=== PATIENT | female | born 1960 | race Caucasian/White ===

== ENCOUNTER 2016-10-02 09:18 | Emergency (ER) | payer OTHER ==
[2016-10-02 09:50] VITALS: BP 143/82
--- NOTE | 2016-10-02 10:26 | UC ---
Knee Pain HPI - HPI Summary HPI Summary: Pain has Left knee pain. 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 - History of Current Complaint Chief Complaint: UCLowerExtremity Stated Complaint: LEFT KNEE PAIN Time Seen by Provider: 10/02/16 10:14 Hx Obtained From: Patient Hx Last Menstrual Period: 10yrs ?: No Onset/Duration: Gradual Onset, Lasting Days - 5, Still Present, Worse Since - getting worse daily Severity Initially: Mild Severity Currently: Moderate Pain Intensity: 6 Pain Scale Used: 0-10 Numeric Character: Aching, Throbbing Aggravating Factor(s): Movement, Weight Bearing, Prolonged Standing, Stairs Alleviating Factor(s): Nothing - as been taking Ibuprofen 600 mg q4-6 hours for pain Associated Signs And Symptoms: Positive: Negative Able to Bear Weight: Yes - Allergies/Home Medications Allergies/Adverse Reactions: Allergies Allergy/AdvReac Type Severity Reaction Status Date / Time kiwi Allergy Swelling Uncoded 10/02/16 09:44 Of Face,Lips,& Throat PMH/Surg Hx/FS Hx/Imm Hx Previously Healthy: No Endocrine History Of: Reports: Thyroid Disease - hypothyroid Cardiovascular History Of: Reports: Cardiac Disorders - A-fib, Hypertension, Atrial Fibrillation - Surgical History Surgical History: Yes Surgery Procedure, Year, and Place: THYROID - RADIATED, GASTRIC BYPASS, gallbladder, uterine ablation - Family History Known Family History: Positive: Cardiac Disease, Hypertension, Diabetes - Social History 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 Lives: With Family Alcohol Use: Occasionally Alcohol Amount: 2 Substance Use Type: None Smoking Status (MU): Never Smoked Tobacco Have You Smoked in the Last Year: No - Immunization History Most Recent Influenza Vaccination: Fall 2015 Review of Systems Constitutional: Negative Skin: Negative Eyes: Negative ENT: Negative Respiratory: Negative Cardiovascular: Negative Gastrointestinal: Negative Genitourinary: Negative Motor: Negative Neurovascular: Negative Musculoskeletal: Arthralgia - crepetus with range of motion Neurological: Negative Psychological: Negative All Other Systems Reviewed And Are Negative: Yes Physical Exam Triage Information Reviewed: Yes Appearance: Well-Appearing, No Pain Distress, Well-Nourished Vital Signs: Initial Vital Signs Temp 99.5 F 10/02/16 09:45 Pulse 69 10/02/16 09:45 Resp 20 10/02/16 09:45 BP 143/82 10/02/16 09:45 Pulse Ox 98 10/02/16 09:45 Vital Signs Reviewed: Yes Eye Exam: Normal Eyes: Positive: Conjunctiva Clear ENT Exam: Normal ENT: Positive: Normal ENT inspection, Hearing grossly normal, Pharynx normal. Negative: Nasal congestion, Nasal drainage, Trismus, Muffled/hoarse voice Neck exam: Normal Neck: Positive: Supple, Nontender Respiratory Exam: Normal Respiratory: Positive: Chest non-tender, Lungs clear, Normal breath sounds, No respiratory distress, No accessory muscle use Cardiovascular Exam: Normal Cardiovascular: Positive: RRR, No Murmur, Pulses Normal, Brisk Capillary Refill Musculoskeletal Exam: Normal Musculoskeletal: Positive: Strength Intact, ROM Intact, No Edema Neurological Exam: Normal Neurological: Positive: Alert, Muscle Tone Normal Psychological Exam: Normal Skin Exam: Normal Skin: Positive: rashes Diagnostics - Radiology No standard instances Xray Interpretation: No Acute Changes Radiology Interpretation Completed By: Radiologist Knee Pain Course/Dx - Course Course Of Treatment: physical therapy, d/c ibuprofen change to naproxen, follow with orthopedic - Differential Dx/Diagnosis Differential Diagnosis/HQI/PQRI: Contusion, Fracture (Closed), Internal Derangement Of Knee, Sprain, Strain, Other - knee pain Provider Diagnoses: Left knee pain Discharge - Discharge Plan Condition: Stable Disposition: HOME Prescriptions: Naproxen Sodium 500 mg PO BID #20 tab Patient Education Materials: Knee Pain (ED), Knee Exercises (GEN) Forms: *Work Release Referrals: Sonido Bates MD [Medical Doctor] - No Primary Care Phys,NOPCP [Primary Care Provider] -
--- NOTE | 2016-10-02 11:15 | RAD ---
Indication: LEFT knee pain for 5 days without preceding injury. Comparison: None. Technique: AP, tunnel, lateral, sunrise views LEFT knee. Report: Normal articular alignment and preserved joint spaces. Negative for joint effusion, fracture, or focal osseous lesion. Unremarkable soft tissue contours. IMPRESSION: Negative exam.
== END 2016-10-02 11:41 | disposition home or self-care (01) ==
LOC: UCCORT 09:18
DX: M25.562 Pain in left knee (principal)
CPT/HCPCS: 99212; G0463

== ENCOUNTER 2016-10-08 12:55 | Emergency (ER) | payer OTHER ==
[2016-10-08 13:49] VITALS: BP 136/79
--- NOTE | 2016-10-08 15:14 | UC ---
Throat Pain/Nasal Kali HPI - HPI Summary HPI Summary: ST, fever, chills for 2d. Now with dry cough, malaise, headache, body aches. Mild nasal congestion. 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 Nonsmoker. No asthma. - History of Current Complaint Chief Complaint: UCGeneralIllness Stated Complaint: SORE THROAT,COUGH Time Seen by Provider: 10/08/16 15:05 Hx Obtained From: Patient, Family/Supervisor Cab - Hx Last Menstrual Period: 10yrs Onset/Duration: Gradual Onset, Lasting Days - 2 Severity: Moderate Cough: Nonproductive Associated Signs & Symptoms: Positive: Dysphagia, Hoarseness, Nasal Discharge, Fever - subjective - Epiglottits Risk Factors Epiglottis Risk Factors: Negative - Allergies/Home Medications Allergies/Adverse Reactions: Allergies Allergy/AdvReac Type Severity Reaction Status Date / Time kiwi Allergy Swelling Uncoded 10/02/16 09:44 Of Face,Lips,& Throat PMH/Surg Hx/FS Hx/Imm Hx Endocrine History Of: Reports: Thyroid Disease - hypothyroid Cardiovascular History Of: Reports: Cardiac Disorders - A-fib, Hypertension, Atrial Fibrillation - Surgical History Surgical History: Yes Surgery Procedure, Year, and Place: THYROID - RADIATED, GASTRIC BYPASS, gallbladder, uterine ablation - Family History Known Family History: Positive: Cardiac Disease, Hypertension, Diabetes - Social History Occupation: Employed Full-time Lives: With Family Alcohol Use: Occasionally Alcohol Amount: 2 Substance Use Type: None Smoking Status (MU): Never Smoked Tobacco Have You Smoked in the Last Year: No - Immunization History Most Recent Influenza Vaccination: Fall 2015 Review of Systems Constitutional: Fever, Chills, Fatigue Skin: Negative Eyes: Negative ENT: Sore Throat, Nasal Discharge Respiratory: Cough Cardiovascular: Negative Gastrointestinal: Negative Genitourinary: Negative Motor: Negative Neurovascular: Negative Musculoskeletal: Negative Neurological: Negative Psychological: Negative All Other Systems Reviewed And Are Negative: Yes Physical Exam Triage Information Reviewed: Yes Appearance: Well-Appearing, No Pain Distress, Well-Nourished Vital Signs: Initial Vital Signs Temp 99.2 F 10/08/16 13:44 Pulse 72 10/08/16 13:44 Resp 16 10/08/16 13:44 BP 136/79 10/08/16 13:44 Pulse Ox 98 10/08/16 13:44 Vital Signs Reviewed: Yes Eye Exam: Normal ENT: Positive: Hearing grossly normal, Pharyngeal erythema, TMs normal, Muffled/ hoarse voice - hoarse. Negative: Tonsillar swelling, Tonsillar exudate, Trismus Neck exam: Normal Respiratory Exam: Normal Respiratory: Positive: Lungs clear, Normal breath sounds, No respiratory distress, No accessory muscle use Cardiovascular Exam: Normal Musculoskeletal Exam: Normal Neurological Exam: Normal Psychological Exam: Normal Skin Exam: Normal Diagnostics - Laboratory Diagnostic Studies Completed/Ordered: Strep neg Throat Pain/Nasal Course/Dx - Differential Dx/Diagnosis Differential Diagnosis/HQI/PQRI: Influenza, Sinusitis, URI Provider Diagnoses: URI Discharge - Discharge Plan Condition: Stable Disposition: HOME Prescriptions: Guaifenesin-Codeine [Cheratussin AC] 1 - 2 teasp PO Q6HR PRN #120 ml MDD 30ml PRN Reason: Cough Meloxicam [Mobic] 7.5 mg PO BID PRN #20 tab PRN Reason: Pain Patient Education Materials: Upper Respiratory Infection (ED) Forms: *Work Release Referrals: No Primary Care Phys,NOPCP [Primary Care Provider] -
== END 2016-10-08 15:45 | disposition home or self-care (01) ==
LOC: UCCORT 12:55
DX: J06.9 Acute upper respiratory infection, unspecified (principal)
CPT/HCPCS: 87651; 99212; G0463

== ENCOUNTER 2016-10-27 14:53 | Emergency (ER) | payer OTHER ==
[2016-10-27 15:49] VITALS: BP 147/100
--- NOTE | 2016-10-27 16:07 | UC ---
Respiratory Complaint HPI - HPI Summary HPI Summary: s/p flu 2 weeks, developed cough and SOB since, no fever or sinus congestion - History of Current Complaint Chief Complaint: UCEar Stated Complaint: THROAT,EARS,COUGH Time Seen by Provider: 10/27/16 15:53 Hx Last Menstrual Period: 10yrs - Allergies/Home Medications Allergies/Adverse Reactions: Allergies Allergy/AdvReac Type Severity Reaction Status Date / Time kiwi Allergy Swelling Uncoded 10/02/16 09:44 Of Face,Lips,& Throat PMH/Surg Hx/FS Hx/Imm Hx Previously Healthy: Yes Endocrine History Of: Reports: Thyroid Disease - hypothyroid Cardiovascular History Of: Reports: Cardiac Disorders - A-fib, Hypertension, Atrial Fibrillation - Surgical History Surgical History: Yes Surgery Procedure, Year, and Place: THYROID - RADIATED, GASTRIC BYPASS, gallbladder, uterine ablation - Family History Known Family History: Positive: Cardiac Disease, Hypertension, Diabetes - Social History Alcohol Use: Occasionally Alcohol Amount: 2 Substance Use Type: None Smoking Status (MU): Never Smoked Tobacco Have You Smoked in the Last Year: No - Immunization History Most Recent Influenza Vaccination: Fall 2015 Review of Systems Constitutional: Negative Skin: Negative Eyes: Negative ENT: Negative Respiratory: Shortness Of Breath, Cough Cardiovascular: Negative Gastrointestinal: Negative Genitourinary: Negative Motor: Negative Neurovascular: Negative Musculoskeletal: Negative Neurological: Negative Psychological: Negative All Other Systems Reviewed And Are Negative: Yes Physical Exam Triage Information Reviewed: Yes Appearance: Well-Nourished, Ill-Appearing, Pain Distress Vital Signs: Initial Vital Signs Temp 100.4 F 10/27/16 15:44 Pulse 80 10/27/16 15:44 Resp 16 10/27/16 15:44 BP 147/100 10/27/16 15:44 Pulse Ox 99 10/27/16 15:44 Vital Signs Reviewed: Yes Eye Exam: Normal Eyes: Positive: Conjunctiva Clear ENT Exam: Normal ENT: Positive: Normal ENT inspection, Hearing grossly normal, Pharyngeal erythema, TMs normal Dental Exam: Normal Neck exam: Normal Neck: Positive: Supple, Nontender, No Lymphadenopathy Respiratory Exam: Normal Respiratory: Positive: Chest non-tender, No respiratory distress, No accessory muscle use, Wheezing, Inspiration Cardiovascular Exam: Normal Cardiovascular: Positive: RRR, No Murmur, Pulses Normal Abdominal Exam: Normal Abdomen Description: Positive: Nontender, No Organomegaly, Soft Bowel Sounds: Positive: Present Musculoskeletal Exam: Normal Musculoskeletal: Positive: Strength Intact, ROM Intact, No Edema Neurological Exam: Normal Neurological: Positive: Alert, Muscle Tone Normal Psychological Exam: Normal Skin Exam: Normal UC Diagnostic Evaluation - Laboratory O2 Sat by Pulse Oximetry: 99 Respiratory Course/Dx - Course Course Of Treatment: hx obtained,exam performed, meds prescribed. eduacted on How to monitor BP and recommend follow up with PCP - Differential Dx/Diagnosis Differential Diagnosis/HQI/PQRI: Asthma, Bronchitis, Influenza, Laryngitis, VRE , Sinusitis Provider Diagnoses: bronchitis Discharge - Discharge Plan Condition: Stable Disposition: HOME Patient Education Materials: Acute Bronchitis (ED) Forms: *Work Release Additional Instructions: take the medications as prescribed. Increase fluid intake and get plenty of rest.
== END 2016-10-27 16:15 | disposition home or self-care (01) ==
LOC: UCCORT 14:53
DX: J40 Bronchitis, not specified as acute or chronic (principal); Z90.49 Acquired absence of other specified parts of digestive tract; Z98.84 Bariatric surgery status
CPT/HCPCS: 99212; G0463

== ENCOUNTER 2017-01-11 17:31 | Emergency (ER) | payer OTHER ==
[2017-01-11 17:41] VITALS: BP 146/80
[2017-01-11] MEDS ORDERED: Sulfamethox/Trimethoprim DS 800/160* TAB PO ONE (18:06)
[2017-01-11] MEDS ORDERED: Benzonatate CAP* 100 MG PO ONE (18:07)
--- NOTE | 2017-01-11 18:35 | UC ---
Throat Pain/Nasal Kali HPI - HPI Summary HPI Summary: pt presents with c/o nasal congestion, sore throat, cough, and lower abdominal pain. The nasal congestion and cough X 2-3 weeks. The lower abdominal discomfort began 1 day ago. Reports that she noticed that when she urinated it "bui and does not feel like I am emptying my bladder". - History of Current Complaint Chief Complaint: UCGeneralIllness Stated Complaint: SORE THROAT/URINARY Time Seen by Provider: 01/11/17 17:41 Hx Obtained From: Patient Hx Last Menstrual Period: 10yrs ?: No Onset/Duration: Gradual Onset, Lasting Days Severity: Mild Pain Intensity: 0 Pain Scale Used: 0-10 Numeric Related History: Seasonal Allergies - Allergies/Home Medications Allergies/Adverse Reactions: Allergies Allergy/AdvReac Type Severity Reaction Status Date / Time kiwi Allergy Swelling Uncoded 01/11/17 17:41 Of Face,Lips,& Throat PMH/Surg Hx/FS Hx/Imm Hx Previously Healthy: Yes Endocrine History Of: Reports: Thyroid Disease - hypothyroid Cardiovascular History Of: Reports: Cardiac Disorders - A-fib, Hypertension, Atrial Fibrillation - Surgical History Surgical History: Yes Surgery Procedure, Year, and Place: THYROID - RADIATED, GASTRIC BYPASS, gallbladder, uterine ablation - Family History Known Family History: Positive: Cardiac Disease, Hypertension, Diabetes - Social History Alcohol Use: Occasionally Alcohol Amount: 2 Substance Use Type: None Smoking Status (MU): Never Smoked Tobacco Have You Smoked in the Last Year: No - Immunization History Most Recent Influenza Vaccination: Fall 2015 Review of Systems Constitutional: Chills, Fatigue Skin: Negative Eyes: Negative ENT: Other - nasal congestion Respiratory: Cough Cardiovascular: Negative Gastrointestinal: Negative Genitourinary: Negative Motor: Negative Neurovascular: Negative Musculoskeletal: Myalgia Neurological: Negative Psychological: Negative All Other Systems Reviewed And Are Negative: Yes Physical Exam Triage Information Reviewed: Yes Appearance: Well-Appearing Vital Signs: Initial Vital Signs Temp 99.4 F 01/11/17 17:37 Pulse 70 01/11/17 17:37 Resp 18 01/11/17 17:37 BP 146/80 01/11/17 17:37 Pulse Ox 99 01/11/17 17:37 Vital Signs Reviewed: Yes Eye Exam: Normal ENT Exam: Other ENT: Positive: Nasal congestion Dental Exam: Normal Respiratory Exam: Normal Cardiovascular Exam: Normal Musculoskeletal Exam: Normal Neurological Exam: Normal Psychological Exam: Normal Skin Exam: Normal Throat Pain/Nasal Course/Dx - Differential Dx/Diagnosis Differential Diagnosis/HQI/PQRI: Influenza, Tonsillitis, URI Provider Diagnoses: UTI. Allergic rhinitis. Bronchitis Discharge - Discharge Plan Condition: Stable Disposition: HOME Prescriptions: Benzonatate CAP* [Tessalon 100 MG CAP*] 100 mg PO TID PRN #15 cap PRN Reason: Cough Fluticasone NASAL * [Flonase *] 2 spray BOTH NARES DAILY #1 bottle Sulfamethox/Trimethoprim DS* [Bactrim DS 800/160 TAB*] 1 tab PO Q12H #10 tab Patient Education Materials: Urinary Tract Infection in Women (ED), Upper Respiratory Infection (ED) Referrals: [facility]FERR[facility] [Outside] No Primary Care Phys,NOPCP [Primary Care Provider] -
== END 2017-01-11 18:16 | disposition home or self-care (01) ==
LOC: UCCORT 17:31
DX: J30.9 Allergic rhinitis, unspecified (principal); J40 Bronchitis, not specified as acute or chronic; N39.0 Urinary tract infection, site not specified; I10 Essential (primary) hypertension; I48.91 Unspecified atrial fibrillation; E03.9 Hypothyroidism, unspecified
CPT/HCPCS: 81003; 87077; 87086; 87186; 99212; A9270-GY; G0463

== ENCOUNTER 2017-02-28 07:27 | Emergency (ER) | payer OTHER ==
[2017-02-28 08:26] VITALS: BP 154/93
--- NOTE | 2017-02-28 11:28 | UC ---
Complaint Female HPI - HPI Summary HPI Summary: Right abdominal pain 2 eves ago, improved then relapsed yesterday when pt had urinary frequency. Blood in urine today [ End ] - History Of Current Complaint Chief Complaint: UCGU Stated Complaint: URINARY Time Seen by Provider: 02/28/17 08:48 Hx Obtained From: Patient Hx Last Menstrual Period: n/a Onset/Duration: Gradual Onset Pain Intensity: 2 Pain Scale Used: 0-10 Numeric Associated Signs And Symptoms: Positive: Negative, Back Pain - Allergies/Home Medications Allergies/Adverse Reactions: Allergies Allergy/AdvReac Type Severity Reaction Status Date / Time allergies Allergy Congestion Uncoded 02/28/17 08:27 kiwi Allergy Swelling Uncoded 02/28/17 08:27 Of Face,Lips,& Throat PMH/Surg Hx/FS Hx/Imm Hx Previously Healthy: Yes - Surgical History Surgical History: Yes Surgery Procedure, Year, and Place: THYROID - RADIATED, GASTRIC BYPASS, gallbladder, uterine ablation - Family History Known Family History: Positive: Cardiac Disease, Hypertension, Diabetes - Social History Occupation: Employed Full-time Lives: With Family Alcohol Use: Occasionally Alcohol Amount: 2 Substance Use Type: None Smoking Status (MU): Never Smoked Tobacco Have You Smoked in the Last Year: No - Immunization History Most Recent Influenza Vaccination: Fall 2015 Review of Systems Constitutional: Negative Skin: Negative Eyes: Negative ENT: Negative Respiratory: Negative Cardiovascular: Negative Gastrointestinal: Negative Genitourinary: Dysuria, Hematuria, Frequency Motor: Negative Neurovascular: Negative Musculoskeletal: Negative Neurological: Negative Psychological: Negative All Other Systems Reviewed And Are Negative: Yes Physical Exam Triage Information Reviewed: Yes Appearance: Well-Appearing, No Pain Distress, Well-Nourished Vital Signs: Initial Vital Signs Temp 99 F 02/28/17 08:19 Pulse 71 02/28/17 08:19 Resp 18 02/28/17 08:19 BP 154/93 02/28/17 08:19 Eye Exam: Normal ENT Exam: Normal Dental Exam: Normal Neck exam: Normal Neck: Positive: 1 Respiratory Exam: Normal Cardiovascular Exam: Normal Abdominal Exam: Normal Musculoskeletal Exam: Normal Neurological Exam: Normal Psychological Exam: Normal Skin Exam: Normal Complaint Female Dx - Differential Dx/Diagnosis Provider Diagnoses: UTI Discharge - Discharge Plan Condition: Good Disposition: HOME Prescriptions: Sulfamethox/Trimethoprim DS* [Bactrim DS 800/160 TAB*] 1 tab PO BID #10 tab Patient Education Materials: Urinary Tract Infection in Women (ED) Referrals: No Primary Care Phys,NOPCP [Primary Care Provider] - 2 Weeks (for recheck urine )
== END 2017-02-28 09:19 | disposition home or self-care (01) ==
LOC: UCCORT 07:27
DX: N39.0 Urinary tract infection, site not specified (principal)
CPT/HCPCS: 81003; 87086; 99212; G0463

== ENCOUNTER 2017-04-21 10:08 | Emergency (ER) | payer OTHER ==
[2017-04-21 10:27] VITALS: BP 127/78
--- NOTE | 2017-04-21 10:42 | UC ---
Complaint Female HPI - HPI Summary HPI Summary: fever chills x 1 day + urinary frequency no cough , no nasal congestion , sore throat, no rash or joint pain - History Of Current Complaint Chief Complaint: UCGeneralIllness Stated Complaint: FEVER,HEADACHE Time Seen by Provider: 04/21/17 10:30 Hx Obtained From: Patient Hx Last Menstrual Period: n/a Onset/Duration: Gradual Onset, Lasting Days - 1, Still Present Timing: Constant Severity Initially: Moderate Severity Currently: Moderate Associated Signs And Symptoms: Positive: Fever, Back Pain. Negative: Vaginal Bleeding/Discharge, Vaginal Discharge, Nausea, Vomiting(# Of Episodes =), Genital Swelling, Genital Blisters, Retained Foregin Body (Specify) - Allergies/Home Medications Allergies/Adverse Reactions: Allergies Allergy/AdvReac Type Severity Reaction Status Date / Time allergies Allergy Congestion Uncoded 04/21/17 10:27 kiwi Allergy Swelling Uncoded 04/21/17 10:27 Of Face,Lips,& Throat PMH/Surg Hx/FS Hx/Imm Hx Previously Healthy: Yes Endocrine History: Hypothyroidism Cardiovascular History: Hypertension, Atrial Fibrillation - Surgical History Surgical History: Yes Surgery Procedure, Year, and Place: THYROID - RADIATED, GASTRIC BYPASS 2002, gallbladder, uterine ablation - Family History Known Family History: Positive: Cardiac Disease, Hypertension, Diabetes - Social History Alcohol Use: Rare Alcohol Amount: 2 Substance Use Type: None Smoking Status (MU): Never Smoked Tobacco Have You Smoked in the Last Year: No - Immunization History Most Recent Influenza Vaccination: Fall 2015 Review of Systems Constitutional: Fever, Chills, Fatigue Skin: Negative Eyes: Negative ENT: Negative Respiratory: Negative Genitourinary: Dysuria, Frequency All Other Systems Reviewed And Are Negative: Yes Physical Exam Triage Information Reviewed: Yes Appearance: Well-Appearing, No Pain Distress, Well-Nourished Vital Signs: Initial Vital Signs Temp 98.2 F 04/21/17 10:22 Pulse 72 04/21/17 10:22 Resp 14 04/21/17 10:22 BP 127/78 04/21/17 10:22 Pulse Ox 99 04/21/17 10:22 Vital Signs Reviewed: Yes Eyes: Positive: Conjunctiva Clear ENT: Positive: Normal ENT inspection, Hearing grossly normal, Pharynx normal Neck exam: Normal Neck: Positive: Supple, Nontender, No Lymphadenopathy Respiratory: Positive: Chest non-tender, Lungs clear, Normal breath sounds Cardiovascular: Positive: RRR, No Murmur, Pulses Normal Abdominal Exam: Normal Abdomen Description: Positive: Nontender, Soft. Negative: CVA Tenderness (R), CVA Tenderness (L), Distended, Guarding Bowel Sounds: Positive: Present Skin Exam: Normal Complaint Female Dx - Differential Dx/Diagnosis Provider Diagnoses: UTI Discharge - Discharge Plan Condition: Stable Disposition: HOME Patient Education Materials: Dysuria (ED) Referrals: No Primary Care Phys,NOPCP [Primary Care Provider] - 7 Days Additional Instructions: WILL SEND THE URINE FOR CULTURE PLEASE CALL THE OFFICE IN 2 DAYS FOR THE RESULTS NO NEED FOR ABX FOR NOW UNTIL WE HAVE THE CULTURE RESULTS
== END 2017-04-21 10:48 | disposition home or self-care (01) ==
LOC: UCCORT 10:08
DX: N39.0 Urinary tract infection, site not specified (principal); E03.9 Hypothyroidism, unspecified; I10 Essential (primary) hypertension; I48.91 Unspecified atrial fibrillation; Z98.84 Bariatric surgery status; Z90.49 Acquired absence of other specified parts of digestive tract
CPT/HCPCS: 81003; 87086; 99211; G0463

== ENCOUNTER 2017-07-27 14:43 | Observation (INO) | payer OTHER ==
[2017-07-27] MEDS ORDERED: NS 0.9% 1000 ML* 1,000 ML IV ONE (14:49)
[2017-07-27] MEDS ORDERED: Aspirin Low Dose CHEW TAB* 81 MG PO ONE (14:49)
--- NOTE | 2017-07-27 15:21 | RAD ---
Indication: Sudden onset chest pressure with bilateral upper chimney heaviness and shortness of breath. Reported low blood pressure. Diaphoretic. Comparison: No relevant prior exams available on the [facility] [place] [facility] PACS for comparison. Technique: Upright AP 1455 hours Report: Obese body habitus. Clear lungs and pleural spaces. Negative for pneumothorax. The heart, pulmonary vasculature, and mediastinal contours are unremarkable. Unremarkable osseous structures and soft tissue contours. IMPRESSION: No evidence for acute intrathoracic disease.
[2017-07-27 15:38] LABS: Hematocrit 36 % (35-47); Hemoglobin 11.2 g/dl (12.0-16.0); Mean Corpuscular HGB Conc 31 g/dl (31-36); Mean Corpuscular Hemoglobin 25 pg (27-31); Mean Corpuscular Volume 80 fL (80-97); Mean Platelet Volume 8 um3 (7.4-10.4); Red Cell Distribution Width 17 % (10.5-15); White Blood Count 9.8 10^3/ul (3.5-10.8)
[2017-07-27 16:00] LABS: Troponin I 0.07 ng/mL (<0.04)
[2017-07-27] MEDS ORDERED: Metoprolol Tartrate TAB* 25 MG PO ONE (16:00)
[2017-07-27 16:05] LABS: Albumin 3.5 g/dL (3.2-5.2); BUN/Creatinine Ratio 18.4 (8-20); Calcium 8.4 mg/dL (8.6-10.3); EGFR African American 70.5 (>60); EGFR Non-African American 54.8 (>60); Globulin 2.9 g/dL (2-4); Magnesium 1.7 mg/dL (1.9-2.7); Potassium 3.1 mmol/L (3.5-5.0); Total Bilirubin 0.2 mg/dL (0.2-1.0); Total Protein 6.4 g/dL (6.4-8.9)
[2017-07-27] MEDS ORDERED: Potassium Chlor TAB* 20 MEQ TAB.ER PO ONE (16:15)
--- NOTE | 2017-07-27 16:17 | ED ---
Lisbeth Acevedo Nilda, scribed for Arturo Arvizu MD on 07/27/17 at 1517 . HPI Chest Pain - HPI Summary HPI Summary: This patient is a 57 year old F BIBA to [facility] with a chief complaint of constant CP (heaviness) that radiates to bilat UE since 1230 today (about two hours ago). The patient rates the pain 6/10 in severity. Symptoms aggravated and alleviated by nothing. Per EMS, patient received [facility] PROGRAM COORDINATOR. Patient reports SOB, diaphoresis, and cough (past 3 weeks), but denies nausea. - History of Current Complaint Chief Complaint: EDChestPainROMI Time Seen by Provider: 07/27/17 14:49 Hx Obtained From: Patient Hx Last Menstrual Period: n/a Onset/Duration: Started Hours Ago, Still Present Timing: Constant Current Severity: Moderate Pain Intensity: 6 Pain Scale Used: 0-10 Numeric Chest Pain Radiates: Yes Chest Pain Radiates To:: Arm - bilat Character: Heaviness Aggravating Factor(s): Nothing Alleviating Factor(s): Nothing Associated Signs and Symptoms: Positive: Other: - SOB, diaphoresis, and cough ( past 3 weeks), but denies nausea. - Allergy/Home Medications Allergies/Adverse Reactions: Allergies Allergy/AdvReac Type Severity Reaction Status Date / Time allergies Allergy Congestion Uncoded 04/21/17 10:27 kiwi Allergy Swelling Uncoded 04/21/17 10:27 Of Face,Lips,& Throat PMH/Surg Hx/FS Hx/Imm Hx Endocrine/Hematology History: Reports: Hx Thyroid Disease - hypothyroid Cardiovascular History: Reports: Hx Hypertension EENT History: Denies: Hx Deafness - Surgical History Surgery Procedure, Year, and Place: THYROID - RADIATED, GASTRIC BYPASS 2002, gallbladder, uterine ablation - Immunization History Date of Influenza Vaccine: NO Infectious Disease History: No Infectious Disease History: Denies: Hx Clostridium Difficile, Hx Hepatitis, Hx Human Immunodeficiency Virus (HIV), Hx of Known/Suspected MRSA, Hx Shingles, Hx Tuberculosis, Hx Known/ Suspected VRE, Hx Known/Suspected VRSA, History Other Infectious Disease, Traveled Outside the [place] in Last 30 Days - Family History Known Family History: Positive: Cardiac Disease, Hypertension, Diabetes - Social History Alcohol Use: Rare Alcohol Amount: 2 Substance Use Type: Reports: None Smoking Status (MU): Never Smoked Tobacco Have You Smoked in the Last Year: No Review of Systems Positive: Skin Diaphoresis Positive: Chest Pain Positive: Shortness Of Breath, Cough Negative: Nausea Positive: Other - bilat arm pain All Other Systems Reviewed And Are Negative: Yes Physical Exam Triage Information Reviewed: Yes Vital Signs On Initial Exam: Initial Vitals Temp Pulse Resp BP Pulse Ox 98.8 F 176 18 115/76 96 07/27/17 14:48 07/27/17 14:48 07/27/17 14:48 07/27/17 14:48 07/27/17 14:48 Vital Signs Reviewed: Yes Appearance: Positive: Ill-Appearing - sob Skin: Positive: Skin Color Reflects Adequate Perfusion Head/Face: Positive: Normal Head/Face Inspection Eyes: Positive: EOMI ENT: Positive: Normal ENT inspection Neck: Positive: Supple, Nontender Respiratory/Lung Sounds: Positive: Clear to Auscultation, Breath Sounds Present Cardiovascular: Positive: Tachycardia - and irregular Abdomen Description: Positive: Nontender Musculoskeletal: Positive: Strength/ROM Intact Neurological: Positive: Sensory/Motor Intact, Alert, Oriented to Person Place, Time, CN Intact II-III Psychiatric: Positive: Normal - Varsha Coma Scale Best Eye Response: 4 - Spontaneous Best Motor Response: 6 - Obeys Commands Best Verbal Response: 5 - Oriented Coma Scale Total: 15 Diagnostics - Vital Signs Vital Signs Temp Pulse Resp BP Pulse Ox 07/27/17 14:48 98.8 F 176 18 115/76 96 - Laboratory Result Diagrams: 07/27/17 15:27 07/27/17 15:27 Lab Statement: Any lab studies that have been ordered have been reviewed, and results considered in the medical decision making process. - Radiology CXR Xray Interpretation: No Acute Changes Radiology Interpretation Completed By: Radiologist - CXR reveals no evidence for acute intrathoracic disease. ED physician has reviewed this radiology report and agrees. - EKG 1533 Cardiac Rate: NL EKG Rhythm: Sinus Rhythm - 85 bpm EKG Interpretation: No STEMI Re-Evaluation - Re-Evaluation First Eval Re-Evaluation Time: 15:39 Change: Improved Comment: she is symptom free and in NSR. Chest Pain Course/Dx - Course Course Of Treatment: This patient is a 57 year old F [facility]IBA to [facility] with a chief complaint of constant CP (heaviness) that radiates to bilat UE since 1230 today (about two hours ago). The patient rates the pain 6/10 in severity. Symptoms aggravated and alleviated by nothing. Per EMS, patient received [facility] PROGRAM COORDINATOR. Patient reports SOB, diaphoresis, and cough (past 3 weeks), but denies nausea. She presented in Afib with RVR and spontaneous resolved. EKG reveals NSR, 85 bpm, no STEMI. CXR reveals no evidence for acute intrathoracic disease. ED physician has reviewed this radiology report and agrees. Dx: Atrial fibrillation with RVR and Chest Pain. - Diagnoses Provider Diagnoses: Atrial fibrillation with RVR, Chest pain, Hypokalemia - Critical Care Time Critical Care Time: 30-74 min Discharge - Discharge Plan Condition: Good Disposition: ADMITTED TO [facility] Referrals: No Primary Care Phys,NOPCP [Primary Care Provider] - The documentation as recorded by the Lisbeth dow Nilda accurately reflects the service I personally performed and the decisions made by me, Arturo Arvizu MD.
[2017-07-27] MEDS ORDERED: Magnesium Sulfate 2 GM IV* 2 GM/50 ML BAG IVPB ONE (16:24)
[2017-07-27] MEDS ORDERED: Acetaminophen TAB* 325 MG PO PRN (16:44)
[2017-07-27] MEDS ORDERED: Temazepam CAP* 15 MG PO PRN (16:44)
[2017-07-27 16:55] LABS: TSH (Thyroid Stimulating Horm) 3.93 mcIU/mL (0.34-5.60)
[2017-07-27 16:59] LABS: Free T4 0.99 ng/dL (0.61-1.12)
[2017-07-27] MEDS: KCL 20 MEQ/100 ML IVPREMIX* 20 MEQ/100 ML BAG IV SCH ×2 (18:00→22:00)
--- NOTE | 2017-07-27 21:40 | HP ---
CC: Aisha Washington MD * HISTORY AND PHYSICAL: DATE OF ADMISSION: 07/27/17 PRIMARY CARE PROVIDER: Aisha Washington MD CHIEF COMPLAINT: Shortness of breath and arm heaviness. HISTORY OF PRESENT ILLNESS: Sherman Atwood is a 57-year-old female with history of Graves disease, status post radioactive iodine treatment as well as episodes of atrial fibrillation in 2004 when she had Graves disease that resolved after she became hypothyroid. She stated that for the past week, she has been having problems with upper respiratory symptoms with cough and chest congestion. She was placed on azithromycin and prednisone taper. 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 She stated that she had been feeling some slight abdominal discomfort and maybe fullness. That had been going on for the past day and a half. Today when she went to lunch, she developed extreme sensation of heaviness in bilateral arms and shortness of breath. She called her and then called 911. She was noted to be in atrial fibrillation with rapid ventricular response with the heart rate into 170s. By the time she was evaluated by the ED physician, that rhythm broke spontaneously and she converted to sinus rhythm without pharmacologic treatment. Her symptoms of shortness of breath and heaviness in bilateral arms resolved with cessation of the abnormal rhythm. Her troponin was 0.07. She is going to be placed on overnight observation with a stress test in the morning. PAST MEDICAL HISTORY: 1. History of Graves disease, status post radioactive iodine treatment, now hypothyroid. 2. Hypothyroidism. 3. History of gastric bypass surgery. 4. History of uterine ablation. 5. History of cholecystectomy. 6. History of diverticulitis bouts several times in the past. 7. History of frequent UTIs. 8. History of episode of atrial fibrillation in 2004. 9. Hyperthyroid. MEDICATIONS: Include Synthroid 125 mcg daily. ALLERGIES: No known drug allergies. FAMILY HISTORY: Positive for both parents dying of heart disease, father in the 70s and mother in her 80s. SOCIAL HISTORY: The patient denies any tobacco, alcohol, or drug use. 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 Her is her surrogate, his name is Jonathan Atwood, phone number is [phone]. REVIEW OF SYSTEMS: Please see history of present illness. In addition to the above mentioned, the patient denies any chest pain. She did not have the sensation of arm heaviness and shortness of breath before and today it lasted approximately an hour up until it resolved in the emergency department. She still has scant cough, but she feels much better with her cold. All the remaining 12 systems were reviewed with the patient, and were otherwise negative. PHYSICAL EXAMINATION GENERAL: The patient is a very pleasant 57-year-old female, who is in no acute distress, alert, awake, and oriented x3. VITAL SIGNS: Blood pressure of 107/74, heart rate of 77 and regular, respiratory rate 15, oxygen saturation 97% on room air, temperature of 98.8. HEENT: Head: Atraumatic, normocephalic. Eyes: Pupils are equal, reactive to light and accommodation. Oropharynx clear. Mucosa moist. NECK: Supple. No JVD. No bruits bilaterally. RESPIRATORY: Scant crackles at left lower lobe, otherwise clear. CARDIOVASCULAR: Regular rate and rhythm. No murmur. ABDOMEN: Soft and nontender. Bowel sounds are present in all 4 quadrants. EXTREMITIES: There is no edema. Pulses +2 bilaterally. There is no clubbing or cyanosis. NEUROLOGIC: Speech is clear. Cranial nerves II through XII grossly intact. Motor strength is 5/5 bilaterally. SKIN: On evaluation of the skin, no ecchymotic areas or rashes are noted. DIAGNOSTIC STUDIES/LAB DATA: Laboratory data shows sodium of 137, potassium of 3.1, chloride 107, carbon dioxide 23, BUN 19, creatinine 1.03. Liver function tests were unremarkable. Troponin of 0.07. Magnesium of 1.7. TSH is pending at the time of dictation. White blood cell count of 9, hemoglobin of 11.2, hematocrit of 36, and platelets of 307,000. D-dimer was negative 219. Portable chest x-ray showed no evidence of acute intrathoracic disease. The patient's EKG obtained after the patient's episode of atrial fibrillation showed normal sinus rhythm at a heart rate of 85 beats per minute with negative T- waves in lead III. Q-waves noted in leads V1 and V2. Comparing with an EKG from 2016, findings are more pronounced today. ASSESSMENT AND PLAN: 1. An episode of symptomatic rapid atrial fibrillation. The patient has a history of paroxysmal atrial fibrillation in 2004 when she was hyperthyroid, but that resolved. Current thyroid studies are pending at the time of dictation. At this point, the precipitating factors could be that the patient was on azithromycin that could be . The patient also has hypokalemia and hypomagnesemia most likely due to low appetite and due to recent upper respiratory infection symptoms. Her troponin is mildly elevated, most likely due to demand ischemia with her heart rate in the 170s. At this point, the patient is going to be placed on overnight observation. Her CHADS-VASC score is 0 and she will not need anticoagulation. She will be placed on baby aspirin on a daily basis. We will observe her on telemetry monitored bed and in the morning obtain a treadmill stress test. We will also follow up with her troponins. 2. In regards to her history of hypothyroidism, her TSH is going to be checked and her Synthroid is going to be continued. 3. For hypokalemia and hypomagnesemia, is going to be placed IV. 4. For DVT prophylaxis, the patient is at low risk and ambulation is going to be encouraged. 5. The patient's code status is full and her surrogate is her . TIME SPENT: Approximately 62 minutes was spent on admission of this patient, more than half of that time was spent [id number] with the patient during the interview and physical exam. [id number]/[facility] #: [id number] OTONIEL
[2017-07-28] MEDS ORDERED: Levothyroxine TAB* 125 MCG TAB PO SCH (06:00)
[2017-07-28 06:14] LABS: Hematocrit 36 % (35-47); Hemoglobin 11.3 g/dl (12.0-16.0); Mean Corpuscular HGB Conc 31 g/dl (31-36); Mean Corpuscular Hemoglobin 25 pg (27-31); Mean Corpuscular Volume 80 fL (80-97); Mean Platelet Volume 8 um3 (7.4-10.4); Red Blood Count 4.53 10^6/ul (4.0-5.4); Red Cell Distribution Width 17 % (10.5-15); White Blood Count 6.5 10^3/ul (3.5-10.8)
[2017-07-28 06:28] LABS: BUN/Creatinine Ratio 17.8 (8-20); Calcium 8.6 mg/dL (8.6-10.3); EGFR African American 82.4 (>60); EGFR Non-African American 64.1 (>60); Magnesium 2.3 mg/dL (1.9-2.7)
[2017-07-28 07:30] VITALS: BP 138/83
[2017-07-28] MEDS ORDERED: Metoprolol Tartrate TAB* 25 MG PO SCH ×2 (09:00→12:00)
[2017-07-28] MEDS ORDERED: Aspirin Low Dose CHEW TAB* 81 MG PO SCH (09:00)
[2017-07-28] MEDS ORDERED: Regadenoson* 0.4 MG/5 ML SYRINGE ONE (10:01)
[2017-07-28] MEDS ORDERED: Aminophylline IV* 25 MG/ML 10 ML VIAL ONE ×2 (10:02→10:03)
--- NOTE | 2017-07-28 11:42 | RAD ---
INDICATION: Elevated troponin and atrial fibrillation. COMPARISON: There are no prior studies available for comparison. Technique: A single day myocardial perfusion stress study was performed. Initially a resting study was performed. The patient was given an intravenous injection of 10.6 mCi of technetium 99m tetrofosmin and and the heart was imaged in multiple projections. The patient returned later in the day and under the direction of Dr. Cavazos, the patient was exercised to a peak heart rate of 147 beats per minute which was 89% of the maximum predicted heart rate. Subsequently the patient was given intravenous injection of 25.0 mCi of technetium 99m tetrofosmin and the heart was imaged in multiple projections. Images were reconstructed in the axial, sagittal and coronal planes and in a 3-D format. FINDINGS: There appears to be normal wall motion and myocardial thickening. The left ventricular ejection fraction was calculated to be 69%. No focal perfusion abnormalities are seen after stress or rest. IMPRESSION: NO EVIDENCE FOR INFARCT OR ISCHEMIA. ASSESSMENT: Low risk. Based on imaging criteria from ACC/AHA 2002 Guideline Update for the Management of Patients With Chronic Stable Angina Table 23. Noninvasive Risk Stratification.
--- NOTE | 2017-07-29 03:49 | DS ---
DISCHARGE SUMMARY: DATE OF ADMISSION: 07/27/17. DATE OF DISCHARGE: 07/28/17. PRIMARY CARE PROVIDER: None. Our office is in the process of organizing for the patient a primary care provider. DISCHARGE DIAGNOSES: 1. An episode of an hour approximate duration of spontaneously resolved atrial fibrillation with rapid ventricular response. 2. Hypokalemia. 3. Hypomagnesemia. 4. Elevated troponin due to demand ischemia while in AFib with low probability cardiac stress test documented at discharge. HOSPITALIZATION COURSE: Sherman Atwood is a 57-year-old female with history of hypothyroidism due to history of Grave disease and status post radioiodine treatment, who when she was hyperthyroid several years ago had several episodes of atrial fibrillation, but had been fine since and who presented to the hospital with sudden onset of shortness of breath and bilateral "arm heaviness" . That occurred for approximately an hour. When she came into the emergency room, she still had the symptoms and she was noted to be in atrial fibrillation with rapid ventricular response and with the heart rate in the 170s. After she received a dose of aspirin, the atrial fibrillation resolved spontaneously without any other rate- controlling agents. Patient was noted to have hypokalemia and hypomagnesemia and thought that it could have been due to dietary insufficiency. She had been battling with cold for the past 1 week and she just finished a course of azithromycin. She still had some scant cough. Patient's troponin karen to 0.7 during her hospital stay. She never complained of chest pain per se. Was told that the patient had elevated troponins due to the demand ischemia while in atrial fibrillation with elevated heart rate. Nevertheless, patient underwent a cardiac stress test, which was reported as low risk with EF of 69%. There were no focal perfusion abnormalities noted after stress or during stress. Patient's electrolytes were replaced during her stay. It is also possible that azithromycin played an alternative medication role in her presentation. Please also note that her thyroid functions were within normal limits. After discharge , patient recommended to follow up with her primary care provider and we are in the process of arranging it. Patient was started on low dose of beta-riley. She is going to be discharged on metoprolol 25 mg b.i.d. with continuation of her Synthroid 125 mcg daily. Please also note that in the morning of 07/28/17, patient had an episode of 4- beat of Vtach that was asymptomatic and multifocal. Her electrolytes by that time were within normal limits. LABORATORY DATA AND STUDIES: During the hospital stay included a sodium of 136 , potassium 4.0, chloride 105, carbon dioxide 36, BUN 16, creatinine 0.9. White blood cell count of 6.5, hemoglobin 11.3, hematocrit of 36 and platelets 304. D-dimer was 219 at admission, INR was 9.4. Patient's nuclear medicine, cardiac stress test showed low risk. EF of 69% with normal motion and myocardial thickening. Patient's TSH was 3.9 and free T4 was 0.9. PHYSICAL EXAMINATION AT THE TIME OF DISCHARGE: GENERAL: The patient is a very pleasant 57-year-old female who is in no acute distress. Alert, awake and oriented x3. VITAL SIGNS: Blood pressure 138/83, heart rate of 63 and regular, respiratory rate 18, oxygen saturation 98% on room air, temperature 97.5. HEENT: Head: Atraumatic, normocephalic. Eyes: Pupils are equal, reactive to light and accommodation. Oropharynx clear. Mucosa moist. Neck: Supple. No JVD. No bruits bilaterally. Cardiovascular: Regular rate and rhythm, no murmur. Respiratory: Clear to auscultation bilaterally. Abdomen is soft, nontender. Bowel sounds present in all 4 quadrants. Extremities: There is no edema. Pulses are +2 bilaterally. There is no clubbing or cyanosis. NEURO EVALUATION: Speech clear. Cranial nerves II through XII grossly intact. Motor strength is 5/5 bilaterally. Please note that on evaluation of patient's paroxysmal atrial fibrillation, patient had symptoms that lasted approximately an hour and I do not believe that she had atrial fibrillation prior to that. Her CHADSVasc-2 score was obtained and it was 0. At this point, anticoagulation is not indicated. Patient will continue metoprolol as prescribed above. Please note that this is a short summary of the patient's hospital stay. Please refer to further medical records for details. [id number]/[facility] #: [id number] [facility]
== END 2017-07-28 14:00 | disposition home or self-care (01) ==
LOC: ED 14:43 → MEDTELE 16:31
PROVIDERS: ADMIT Internal Medicine; ATTEND Internal Medicine
DX: I48.91 Unspecified atrial fibrillation (principal); E87.6 Hypokalemia; E83.42 Hypomagnesemia; R74.8 Abnormal levels of other serum enzymes; I10 Essential (primary) hypertension; R06.02 Shortness of breath; E89.0 Postprocedural hypothyroidism; Z98.84 Bariatric surgery status; R07.9 Chest pain, unspecified; Z79.899 Other long term (current) drug therapy
CPT/HCPCS: 36415; 71010; 78452; 80048; 80053; 83605; 83735; 83880; 84439; 84443; 84484; 85025; 85379; 85610; 93005; 93017; 96361; 96365; 99291; A9270-GY; A9502; G0378; J0280; J2785; J3475; J3480

== ENCOUNTER 2017-10-11 10:10 | Emergency (ER) | payer OTHER ==
[2017-10-11 11:40] VITALS: BP 137/87
--- NOTE | 2017-10-11 12:00 | UC ---
Respiratory Complaint HPI - HPI Summary HPI Summary: cough, congestion, sore throat for about 2-3 days. No known lung disease. She does have hx of afib. NO known objective fever. - History of Current Complaint Chief Complaint: UCRespiratory Stated Complaint: FLU SYMPTOMS Time Seen by Provider: 10/11/17 11:48 Hx Obtained From: Patient Hx Last Menstrual Period: n/a Onset/Duration: Gradual Onset, Lasting Days, Still Present Severity Initially: Moderate Severity Currently: Moderate Pain Intensity: 4 Character: Cough: Nonproductive Aggravating Factors: Deep Breaths, Recumbent Position Alleviating Factors: Upright Position, Spontaneous Resolution Associated Signs And Symptoms: Positive: URI, Nasal Congestion. Negative: Fever , Chills, Hemoptysis, Calf Pain, Calf Swelling - Allergies/Home Medications Allergies/Adverse Reactions: Allergies Allergy/AdvReac Type Severity Reaction Status Date / Time Kiwi Extract Allergy Severe Swelling Verified 10/11/17 11:34 Of Face,Lips,& Throat allergies Allergy Congestion Uncoded 10/11/17 11:34 Home Medications: Home Medications Amlodipine Besylate [Norvasc 2.5 mg tab] 2.5 mg PO DAILY 10/11/17 [History Confirmed 10/11/17] PMH/Surg Hx/FS Hx/Imm Hx Previously Healthy: No - afib. - Surgical History Surgical History: Yes Surgery Procedure, Year, and Place: THYROID - RADIATED, GASTRIC BYPASS 2002, gallbladder, uterine ablation - Family History Known Family History: Positive: Cardiac Disease, Hypertension, Diabetes - Social History Occupation: Employed Full-time Alcohol Use: Rare Alcohol Amount: 2 Substance Use Type: None Smoking Status (MU): Never Smoked Tobacco Have You Smoked in the Last Year: No - Immunization History Most Recent Influenza Vaccination: Fall 2015 Review of Systems ENT: Sore Throat, Sinus Congestion Respiratory: Cough All Other Systems Reviewed And Are Negative: Yes Physical Exam Triage Information Reviewed: Yes Appearance: Well-Appearing, No Pain Distress, Obese Vital Signs: Initial Vital Signs Temp 99.5 F 10/11/17 11:36 Pulse 59 10/11/17 11:36 Resp 20 10/11/17 11:36 BP 137/87 10/11/17 11:36 Pulse Ox 99 10/11/17 11:36 Vital Signs Reviewed: Yes Eyes: Positive: Conjunctiva Clear ENT: Positive: Pharynx normal, Nasal congestion, TMs normal, Uvula midline. Negative: TM bulging, TM dull, TM red, Tonsillar swelling, Tonsillar exudate, Trismus, Muffled voice, Sinus tenderness Neck: Positive: Supple, Nontender, No Lymphadenopathy Respiratory: Positive: Lungs clear, Normal breath sounds, No respiratory distress, No accessory muscle use. Negative: Respiratory distress, Decreased breath sounds, Accessory muscle use, Crackles, Rhonchi, Stridor, Wheezing, Expiration Cardiovascular: Positive: RRR, No Murmur, Pulses Normal Abdomen Description: Positive: Soft. Negative: Distended, Guarding Musculoskeletal: Positive: Strength Intact, ROM Intact, No Edema Neurological: Positive: Alert, Muscle Tone Normal Psychological: Positive: Age Appropriate Behavior Skin: Negative: rashes UC Diagnostic Evaluation - Laboratory O2 Sat by Pulse Oximetry: 99 Respiratory Course/Dx - Course Course Of Treatment: supportive care. Sinus irrigation and decongestants. - Differential Dx/Diagnosis Provider Diagnoses: uri Discharge - Discharge Plan Condition: Good Disposition: HOME Prescriptions: Benzonatate CAP* [Tessalon 100 MG CAP*] 100 mg PO TID #30 cap Patient Education Materials: Upper Respiratory Infection (ED) Forms: *Work Release Referrals: Benjamin Smith MD [Primary Care Provider] -
== END 2017-10-11 12:04 | disposition home or self-care (01) ==
LOC: UCCORT 10:10
DX: J06.9 Acute upper respiratory infection, unspecified (principal); I48.91 Unspecified atrial fibrillation; E66.9 Obesity, unspecified; Z98.84 Bariatric surgery status; Z90.49 Acquired absence of other specified parts of digestive tract
CPT/HCPCS: 99212; G0463

== ENCOUNTER 2017-10-26 12:23 | Emergency (ER) | payer OTHER ==
[2017-10-26 13:16] VITALS: BP 147/98
--- NOTE | 2017-10-26 14:04 | UC ---
FLU HPI - HPI Summary HPI Summary: Pt presents with fever, sore throat, dry cough, post nasal drip, b/l ear pain, and body aches for the last 2 days. 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 Has been taking tylenol with good relief of her fever and discomfort. Denies SOB, chest pain, abdominal pain, n/v/d/ - History of Current Complaint Chief Complaint: UCGeneralIllness Stated Complaint: SORE THROAT HEADACHE Time Seen by Provider: 10/26/17 14:01 Hx Obtained From: Patient Hx Last Menstrual Period: na ?: No Onset/Duration: Gradual Onset Severity Currently: Moderate Severity Initially: Moderate Pain Intensity: 7 Pain Scale Used: 0-10 Numeric - Allergy/Home Medications Allergies/Adverse Reactions: Allergies Allergy/AdvReac Type Severity Reaction Status Date / Time MS Elkins Extract Allergy Severe Swelling Verified 10/26/17 13:17 Of Face,Lips,& Throat Home Medications: Home Medications Propafenone HCl [Propafenone HCl ER] 325 mg PO DAILY 10/26/17 [History Confirmed 10/26/17] PMH/Surg Hx/FS Hx/Imm Hx Previously Healthy: Yes Endocrine History: Hypothyroidism Cardiovascular History: Hypertension - Surgical History Surgical History: Yes Surgery Procedure, Year, and Place: THYROID - RADIATED, GASTRIC BYPASS 2002, gallbladder, uterine ablation - Family History Known Family History: Positive: Cardiac Disease, Hypertension, Diabetes - Social History Occupation: Employed Full-time Lives: With Family Alcohol Use: Occasionally Alcohol Amount: 2 Substance Use Type: None Smoking Status (MU): Never Smoked Tobacco Have You Smoked in the Last Year: No - Immunization History Most Recent Influenza Vaccination: Fall 2015 Review of Systems Constitutional: Fever, Fatigue, Other - Body aches Skin: Negative Eyes: Negative ENT: Sore Throat, Nasal Discharge, Sinus Congestion, Sinus Pain/Tenderness Respiratory: Cough Cardiovascular: Negative Gastrointestinal: Negative Genitourinary: Negative Musculoskeletal: Negative Neurological: Negative Psychological: Negative All Other Systems Reviewed And Are Negative: Yes Physical Exam Triage Information Reviewed: Yes Appearance: No Pain Distress, Well-Nourished, Ill-Appearing Vital Signs: Initial Vital Signs Temp 99.7 F 10/26/17 13:09 Pulse 80 10/26/17 13:09 Resp 18 10/26/17 13:09 BP 147/98 10/26/17 13:09 Pulse Ox 100 10/26/17 13:09 Vital Signs Reviewed: Yes Eyes: Positive: Conjunctiva Clear. Negative: Conjunctiva Inflamed, Discharge ENT: Positive: Hearing grossly normal, Pharynx normal, TMs normal, Uvula midline. Negative: Pharyngeal erythema, Nasal congestion, Nasal drainage, TM bulging, TM dull, TM red, Tonsillar swelling, Tonsillar exudate, Hoarse voice, Sinus tenderness Neck: Positive: Supple, Nontender, No Lymphadenopathy Respiratory: Positive: Lungs clear, Normal breath sounds, No respiratory distress, No accessory muscle use Cardiovascular: Positive: RRR, Pulses Normal, Brisk Capillary Refill Neurological: Positive: Fatigued Psychological: Positive: Age Appropriate Behavior Skin: Negative: rashes Flu Course/Dx - Course Course Of Treatment: POC flu negative. Given her recent sick contacts and presenation - will treat with tamiflu. - Differential Dx/Diagnosis Provider Diagnoses: Sore throat. Viral syndrome Discharge - Discharge Plan Condition: Stable Disposition: HOME Prescriptions: Oseltamivir CAP* [Tamiflu CAP*] 75 mg PO BID #10 cap Patient Education Materials: Viral Syndrome (ED) Forms: *Work Release Referrals: Benjamin Smith MD [Primary Care Provider] - Additional Instructions: If you develop a fever, shortness of breath, chest pain, new or worsening symptoms - please call your PCP or go to the ED. Your blood pressure was high at todays visit. Please see your primary provider within 4 weeks for recheck and re-evaluation.
== END 2017-10-26 14:48 | disposition home or self-care (01) ==
LOC: UCEAST 12:23
DX: B34.9 Viral infection, unspecified (principal); J02.9 Acute pharyngitis, unspecified; E03.9 Hypothyroidism, unspecified; I10 Essential (primary) hypertension; Z98.84 Bariatric surgery status; Z90.49 Acquired absence of other specified parts of digestive tract
CPT/HCPCS: 87502; 99211; G0463

== ENCOUNTER 2017-12-28 07:16 | Emergency (ER) | payer OTHER ==
[2017-12-28 07:48] VITALS: BP 132/88
--- NOTE | 2017-12-28 08:23 | ED ---
Respiratory - HPI Summary HPI Summary: 57 yr old female with the complaint of sore throat, myalgias, headache. Onset last night. The patient has been ill for about 24 hours. 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 No stridor, no drooling, no SOB. No light sensitivity, no neck stiffness. She had a temp last evening of 101. - History of Current Complaint Chief Complaint: UCHeadache Stated Complaint: HEADACHE, SORE THROAT Time Seen by Provider: 12/28/17 07:52 Pain Intensity: 7 - Allergy/Home Medications Allergies/Adverse Reactions: Allergies Allergy/AdvReac Type Severity Reaction Status Date / Time kiwi Allergy Swelling Verified 12/28/17 07:42 Of Face,Lips,& Throat Home Medications: Home Medications Ascorbic Acid TAB* [Vitamin C TAB*] 500 mg PO DAILY 12/28/17 [History Confirmed 12/28/17] Cholecalciferol TAB* [Vitamin D TAB*] 1,000 unit PO DAILY 12/28/17 [History Confirmed 12/28/17] Cyanocobalamin TAB* [Vitamin B12 TAB*] 500 mcg PO DAILY 12/28/17 [History Confirmed 12/28/17] PMH/Surg Hx/FS Hx/Imm Hx Endocrine/Hematology History: 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 Denies: Hx Diabetes Cardiovascular History: Reports: Hx Angina, Hx Hypercholesterolemia, Hx Hypertension Denies: Hx Coronary Artery Disease, Hx Myocardial Infarction Respiratory History: Denies: Hx Asthma, Hx Chronic Obstructive Pulmonary Disease (COPD) GI History: Denies: Hx Ulcer Sensory History: Denies: Hx Contacts or Glasses, Hx Deafness, Hx Hearing Aid Opthamlomology History: Denies: Hx Contacts or Glasses - Surgical History Surgery Procedure, Year, and Place: THYROID - RADIATED, GASTRIC BYPASS 2002, gallbladder, uterine ablation - Immunization History Date of Influenza Vaccine: NO Infectious Disease History: No Infectious Disease History: Denies: Hx Clostridium Difficile, Hx Hepatitis, Hx Human Immunodeficiency Virus (HIV), Hx of Known/Suspected MRSA, Hx Shingles, Hx Tuberculosis, Hx Known/ Suspected VRE, Hx Known/Suspected VRSA, History Other Infectious Disease, Traveled Outside the [place] in Last 30 Days - Family History Known Family History: Positive: Cardiac Disease, Hypertension, Diabetes - Social History Occupation: Employed Full-time Alcohol Use: Occasionally Alcohol Amount: 2 Substance Use Type: Reports: None Smoking Status (MU): Never Smoked Tobacco Have You Smoked in the Last Year: No Review of Systems Positive: Fever Positive: Sore Throat Positive: Cough Positive: Myalgia All Other Systems Reviewed And Are Negative: Yes Physical Exam Triage Information Reviewed: Yes Vital Signs On Initial Exam: Initial Vitals Temp Pulse Resp BP Pulse Ox 99.0 F 75 18 132/88 99 12/28/17 07:42 12/28/17 07:42 12/28/17 07:42 12/28/17 07:42 12/28/17 07:42 Vital Signs Reviewed: Yes Appearance: Positive: Well-Appearing, No Pain Distress Skin: Positive: Warm, Skin Color Reflects Adequate Perfusion Head/Face: Positive: Normal Head/Face Inspection Eyes: Positive: EOMI, BENJA ENT: Positive: Pharyngeal erythema, TMs normal Neck: Positive: Nontender Respiratory/Lung Sounds: Positive: Clear to Auscultation, Breath Sounds Present Cardiovascular: Positive: RRR. Negative: Murmur Abdomen Description: Positive: Nontender Musculoskeletal: Positive: Strength/ROM Intact Neurological: Positive: Sensory/Motor Intact, Alert, Oriented to Person Place, Time, CN Intact II-III Psychiatric: Positive: Normal - Roff Coma Scale Best Eye Response: 4 - Spontaneous Best Motor Response: 6 - Obeys Commands Best Verbal Response: 5 - Oriented Coma Scale Total: 15 Diagnostics - Vital Signs Vital Signs Temp Pulse Resp BP Pulse Ox 12/28/17 07:42 99.0 F 75 18 132/88 99 - Laboratory Lab Results: Lab Results 12/28/17 Range/Units 07:58 Group A Strep Rapid Negative (Negative) Lab Statement: Any lab studies that have been ordered have been reviewed, and results considered in the medical decision making process. Disposition - Course Course Of Treatment: 57 yr female with URI symptoms. Negative rapid flu and strep. - Diagnoses Provider Diagnoses: Upper respiratory infection Discharge - Sign-Out/Discharge Documenting (check all that apply): Discharge - Discharge Plan Condition: Good Disposition: HOME Patient Education Materials: Upper Respiratory Infection (ED) Referrals: Jonathan Hawthorne MD [Primary Care Provider] - 2 Days - Billing Disposition and Condition Condition: GOOD Disposition: HOME
== END 2017-12-28 08:53 | disposition home or self-care (01) ==
LOC: UCCORT 07:16
DX: J06.9 Acute upper respiratory infection, unspecified (principal)
CPT/HCPCS: 87502; 87651; 99212; G0463

== ENCOUNTER 2018-02-08 08:17 | Emergency (ER) | payer OTHER ==
[2018-02-08 08:26] VITALS: BP 131/92
--- NOTE | 2018-02-08 08:40 | UC ---
Complaint Female HPI - HPI Summary HPI Summary: 57 yo female c/o since yesterday + general abd discomfort, malaise, and today c/ o frequency / urgency / dysuria, spotty hematuria. No fever /chills. Denies back pain. No rash. No sob /cp / palpitations. No rash. Hx uti's. - History Of Current Complaint Chief Complaint: UCGU Stated Complaint: URINARY Time Seen by Provider: 02/08/18 08:32 Hx Obtained From: Patient Hx Last Menstrual Period: na Pain Intensity: 0 - Allergies/Home Medications Allergies/Adverse Reactions: Allergies Allergy/AdvReac Type Severity Reaction Status Date / Time kiwi Allergy Swelling Verified 02/08/18 08:26 Of Face,Lips,& Throat PMH/Surg Hx/FS Hx/Imm Hx Previously Healthy: Yes - Surgical History Surgical History: Yes Surgery Procedure, Year, and Place: THYROID - RADIATED, GASTRIC BYPASS 2002, gallbladder, uterine ablation - Family History Known Family History: Positive: Cardiac Disease, Hypertension, Diabetes - Social History Alcohol Use: Occasionally Alcohol Amount: 2 Substance Use Type: None Smoking Status (MU): Never Smoked Tobacco Have You Smoked in the Last Year: No - Immunization History Most Recent Influenza Vaccination: Fall 2015 Review of Systems Constitutional: Fatigue Skin: Negative Eyes: Negative ENT: Negative Respiratory: Negative Cardiovascular: Negative Gastrointestinal: Other - see hpi Genitourinary: Other - see hpi Motor: Negative Neurovascular: Negative Musculoskeletal: Negative Neurological: Negative Psychological: Negative Is Patient Immunocompromised?: No All Other Systems Reviewed And Are Negative: Yes Physical Exam Triage Information Reviewed: Yes Appearance: Well-Appearing, Well-Nourished Vital Signs: Initial Vital Signs Temp 97.9 F 02/08/18 08:22 Pulse 76 02/08/18 08:22 Resp 16 02/08/18 08:22 BP 131/92 02/08/18 08:22 Pulse Ox 99 02/08/18 08:22 Vital Signs Reviewed: Yes Eye Exam: Normal - grossly normal ENT Exam: Normal - grossly normal Neck exam: Normal - grossly normal, detailed not done Respiratory Exam: Normal Respiratory: Positive: Chest non-tender, Lungs clear, Normal breath sounds, No respiratory distress Cardiovascular Exam: Normal Cardiovascular: Positive: RRR, Pulses Normal, Brisk Capillary Refill Abdominal Exam: Normal, Other - Soft, nd, tenderness midlower abd / pelvic over bladder region. No cvat appreciated or reported Musculoskeletal Exam: Normal - gait steady, moves x 4 ext's Neurological Exam: Normal - grossly nonfocal Psychological Exam: Normal Skin Exam: Normal - no visible or reported rash. non-diaphoretic. Complaint Female Dx - Course Course Of Treatment: Reviewed urine dip today. Cx sent. I reviewed last urine cx's as available in [email or web address], dating to December 2016. Reviewed allergies. Encourage f/u PCP recheck, including + blood in dip. Questions as posed answered to the best of my ability. - Differential Dx/Diagnosis Provider Diagnoses: UTI Discharge - Sign-Out/Discharge Documenting (check all that apply): Discharge/Admit/Transfer - Discharge Plan Condition: Stable Disposition: HOME Prescriptions: DOXYcycline CAP(*) [DOXYcycline 100MG CAP(*)] 100 mg PO BID #20 cap Phenazopyridine 200 mg (NF) [Pyridium 200 MG tab *] 200 mg PO TID PRN #12 tab PRN Reason: Pain Patient Education Materials: Urinary Tract Infection in Women (ED), Hematuria ( ED) Referrals: Jonathan Hawthorne MD [Primary Care Provider] - Additional Instructions: Please follow up with your primary care physician as scheduled (in the next 2 weeks). Urine recheck - including make sure that blood has resolved. High blood pressure today - 131/92. Seek medical attention for worse or new problems in the meantime. Urine culture has been sent to the lab ([facility] [place] - Billing Disposition and Condition Condition: STABLE Disposition: HOME
== END 2018-02-08 08:59 | disposition home or self-care (01) ==
LOC: UCCORT 08:17
DX: N39.0 Urinary tract infection, site not specified (principal)
CPT/HCPCS: 81003; 87086; 99212; G0463

== ENCOUNTER 2018-05-31 11:41 | Emergency (ER) | payer OTHER ==
[2018-05-31 12:27] VITALS: BP 144/87
--- NOTE | 2018-05-31 13:11 | ED ---
Back Pain - HPI Summary HPI Summary: 58 yr old female with the complaint of left frontal headache, pain in between her shoulder blades, SOB, pain worse with deep breath. Onset of her symptoms Late last week after driving back from [place]. She denies fever, chills, cough, post nasal drip. Her frontal headache better after tylenol. The patient denies leg pain, but states her lower legs were swollen after the trip back from [facility]. 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 Denies: Hx Diabetes Cardiovascular History: Reports: Hx Angina, Hx Hypercholesterolemia, Hx Hypertension Denies: Hx Coronary Artery Disease, Hx Myocardial Infarction Respiratory History: Denies: Hx Asthma, Hx Chronic Obstructive Pulmonary Disease (COPD) GI History: Denies: Hx Ulcer Sensory History: Denies: Hx Contacts or Glasses, Hx Deafness, Hx Hearing Aid Opthamlomology History: Denies: Hx Contacts or Glasses - Surgical History Surgery Procedure, Year, and Place: THYROID - RADIATED, GASTRIC BYPASS 2002, gallbladder, uterine ablation - Immunization History Date of Influenza Vaccine: NO Infectious Disease History: No Infectious Disease History: Denies: Hx Clostridium Difficile, Hx Hepatitis, Hx Human Immunodeficiency Virus (HIV), Hx of Known/Suspected MRSA, Hx Shingles, Hx Tuberculosis, Hx Known/ Suspected VRE, Hx Known/Suspected VRSA, History Other Infectious Disease, Traveled Outside the in Last 30 Days - Family History Known Family History: Positive: Cardiac Disease, Hypertension, Diabetes - Social History Lives: With Family Alcohol Use: Occasionally Alcohol Amount: 2 Substance Use Type: Reports: None Smoking Status (MU): Never Smoked Tobacco Have You Smoked in the Last Year: No Review of Systems Constitutional: Negative Positive: Other - pain when breaths, SOB All Other Systems Reviewed And Are Negative: Yes Physical Exam Triage Information Reviewed: Yes Vital Signs On Initial Exam: Initial Vitals Temp Pulse Resp BP Pulse Ox 98.9 F 81 16 144/87 98 05/31/18 12:22 05/31/18 12:22 05/31/18 12:22 05/31/18 12:22 05/31/18 12:22 Vital Signs Reviewed: Yes Appearance: Positive: Well-Appearing, No Pain Distress Skin: Positive: Warm, Skin Color Reflects Adequate Perfusion Head/Face: Positive: Normal Head/Face Inspection Eyes: Positive: EOMI ENT: Positive: Normal ENT inspection Neck: Positive: Nontender Respiratory/Lung Sounds: Positive: Clear to Auscultation, Breath Sounds Present Cardiovascular: Positive: RRR. Negative: Murmur Abdomen Description: Negative: CVA Tenderness (R), CVA Tenderness (L) Musculoskeletal: Positive: Strength/ROM Intact. Negative: Edema Left, Edema Right Neurological: Positive: Sensory/Motor Intact, Alert, Oriented to Person Place, Time, CN Intact II-III Psychiatric: Positive: Normal - Varsha Coma Scale Best Eye Response: 4 - Spontaneous Best Motor Response: 6 - Obeys Commands Best Verbal Response: 5 - Oriented Coma Scale Total: 15 Diagnostics - Vital Signs Vital Signs Temp Pulse Resp BP Pulse Ox 05/31/18 12:22 98.9 F 81 16 144/87 98 - Laboratory Lab Statement: Any lab studies that have been ordered have been reviewed, and results considered in the medical decision making process. Back Pain Course/Dx - Course Course Of Treatment: 58 yr old female at risk for PE with her long trip and pleuritic pain between shoulder with some SOB. She refused ambulance transport to the ER for further evaluation. Signed out AMA. - Diagnoses Provider Diagnoses: Headache, Pleuritic chest pain, SOB (shortness of breath) Discharge - Sign-Out/Discharge Documenting (check all that apply): Patient Departure All imaging exams completed and their final reports reviewed: No Studies - Discharge Plan Condition: Good Disposition: AGAINST MEDICAL ADVICE Referrals: Jonathan Hawthorne MD [Primary Care Provider] - - Billing Disposition and Condition Condition: GOOD Disposition: Against Medical Advice
== END 2018-05-31 13:07 | disposition left against medical advice (07) ==
LOC: UCCORT 11:41
DX: R51 Headache (principal); R07.1 Chest pain on breathing; R06.02 Shortness of breath; Z91.018 Allergy to other foods
CPT/HCPCS: 99212; G0463

== ENCOUNTER 2018-06-30 08:37 | Emergency (ER) | payer OTHER ==
[2018-06-30 08:52] VITALS: BP 135/79
--- NOTE | 2018-06-30 09:51 | UC ---
Throat Pain/Nasal Kali HPI - HPI Summary HPI Summary: 58 yo female presents with generalized body aches and sore throat that began 5 hours ago upon waking up. She has not taken anything OTC for her discomfort. She was feeling fine yesterday. Denies fever, chills, cough, SOB, chest pain, abdominal pain, n/v. - History of Current Complaint Chief Complaint: UCRespiratory Stated Complaint: HEADACHE COUGH BODYACHES Time Seen by Provider: 06/30/18 09:51 Hx Obtained From: Patient Hx Last Menstrual Period: na Onset/Duration: Sudden Onset Severity: Severe Pain Intensity: 8 Pain Scale Used: 0-10 Numeric - Allergies/Home Medications Allergies/Adverse Reactions: Allergies Allergy/AdvReac Type Severity Reaction Status Date / Time kiwi Allergy Swelling Verified 06/30/18 08:48 Of Face,Lips,& Throat PMH/Surg Hx/FS Hx/Imm Hx Endocrine History: Hypothyroidism Cardiovascular History: Hypertension, Atrial Fibrillation - Surgical History Surgical History: Yes Surgery Procedure, Year, and Place: THYROID - RADIATED, GASTRIC BYPASS 2002, gallbladder, uterine ablation - Family History Known Family History: Positive: Cardiac Disease, Hypertension, Diabetes - Social History Lives: With Family Alcohol Use: Occasionally Alcohol Amount: 2 Substance Use Type: None Smoking Status (MU): Never Smoked Tobacco Have You Smoked in the Last Year: No - Immunization History Most Recent Influenza Vaccination: Fall 2015 Review of Systems Constitutional: Fatigue, Other - Body aches Skin: Negative Eyes: Negative ENT: Sore Throat Respiratory: Negative Cardiovascular: Negative Gastrointestinal: Negative Neurological: Negative Psychological: Negative All Other Systems Reviewed And Are Negative: Yes Physical Exam - Summary Physical Exam Summary: GENERAL: NAD. WDWN. No pain distress. SKIN: No rashes, sores, lesions, or open wounds. HEENT: Head: AT/NC Eyes: EOM intact. Conjunctiva clear without inflammation or discharge. Ears: Hearing grossly normal. TMs intact, no bulging, erythema, or edema. Nose: Nasal mucosa pink and moist. NTTP maxillary and frontal sinus. Throat: Posterior oropharynx without exudates, erythema, or tonsillar enlargement. Uvula midline. NECK: Supple. Nontender. No lymphadenopathy. CHEST: CTAB. No r/r/w. No accessory muscle use. Breathing comfortably and in no distress. CV: RRR. Without m/r/g. Pulses intact. Cap refill <2seconds NEURO: Alert. PSYCH: Age appropriate behavior. Triage Information Reviewed: Yes Vital Signs: Initial Vital Signs Temp 97.8 F 06/30/18 08:45 Pulse 83 06/30/18 08:45 Resp 18 06/30/18 08:45 BP 135/79 06/30/18 08:45 Pulse Ox 98 06/30/18 08:45 Vital Signs Reviewed: Yes Throat Pain/Nasal Course/Dx - Course Course Of Treatment: Suspect viral illness. Advised to rest, drink plenty of fluids, and take tylenol for any discomfort. F/u with PCP if symptoms worsen or persist. - Differential Dx/Diagnosis Provider Diagnoses: Viral syndrome Discharge - Sign-Out/Discharge Documenting (check all that apply): Patient Departure All imaging exams completed and their final reports reviewed: No Studies - Discharge Plan Condition: Stable Disposition: HOME Patient Education Materials: Viral Syndrome (ED) Forms: *Work Release Referrals: Jonathan Hawthorne MD [Primary Care Provider] - Additional Instructions: If you develop a fever, shortness of breath, chest pain, new or worsening symptoms - please call your PCP or go to the ED. 1) Rest and drink plenty of fluids 2) Follow up with your PCP if your symptoms do not improve - Billing Disposition and Condition Condition: STABLE Disposition: Home
== END 2018-06-30 10:11 | disposition home or self-care (01) ==
LOC: UCEAST 08:37
DX: B34.9 Viral infection, unspecified (principal)
CPT/HCPCS: 99211; G0463

== ENCOUNTER 2018-08-18 10:09 | Emergency (ER) | payer OTHER ==
--- OUTSIDE RECORDS SUMMARY | 2018-08-18 10:14 | XMS REPORT ---
:1960 External Reference #:[id number] Author Organization [facility] Address [address], [address] [place] [address] Phone [phone] Care Team Providers Name Role Phone Benjamin Smith MD Care Team Information Bulker Unavailable Riccardo Hawthorne DO Primary Care Physician Unavailable Payers Type Date Identification Numbers Payment Provider Subscriber Commercial Policy Number: [id number] Lifetime Benefit Solution [place] Group Number: [id number] [address] [address] PayID: HE CaiBOBBY [id number] [id number] Commercial Expires: 2013 Policy Number: Lifetime Benefit [place] [id number] Solution PayID: EBS [address] [address] BOBBY Reyes [id number] Commercial Expires: 2015 Policy Number: Lifetime Benefit [place] [id number] Solution PayID: [facility] [address] [address] AmyBOBBY schwab [id number] Problems Date Description Provider Status Onset: 09/16/2017 Paroxysmal atrial fibrillation Bushra Doran, VEGA , Active HOT DIP PLATER Onset: 09/16/2017 Elevated blood-pressure reading Bushra Doran, VEGA , Active without diagnosis of HOT DIP PLATER hypertension Family History Date Family Member(s) Problem(s) Comments Father Pacemaker, CVA Onset: (age 71 Years) Father Heart Disease DESEASED Father Diabetes Mother Pacemaker Onset: (age 82 Years) Mother Heart Disease Mother Diabetes Children 3 Siblings 3 Social History Type Date Description Comments Lives With Diet Healthy, Well Balanced 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 Cigarette Use Never Smoked Cigarettes ETOH Use Occasionally consumes alcohol Smoking Patient denies history of smoking Daily Caffeine Current Caffeine User Allergies, Adverse Reactions, Alerts Date Description Reaction Status Severity Comments 06/05/2016 Kiwi active Throat Swelling 09/30/2017 Metoprolol active extreme fatigue 04/16/2009 NKDA inactive 09/30/2017 NKDA inactive Medications Medication Date Status Form Strength Qnty SIG Indications Ordering Provider Flecainide 07/21/20 Active Tablets 50mg 60tabs 1 by I47.1 Andreea Acetate 18 mouth Bushra twice a ofe Boyle MSN, HOT DIP PLATER I47.1 Amlodipine 09/30/2017 Active Tablets 2.5mg 90tabs 1 by R03.0 Yao Besylate mouth MD Dre every day Aspirin 08/24/[address] 81mg 1 by I48.0 Cl[place], mouth Torin MGraham, every day M.D., [facility] Vitamin B-12 Active Tablets 1000mcg 1 qd PilyHerman, DO Vitamin D3 Active Capsules 5000Uni 1 a day Unknown Maximum t Strength Levothyroxine Active Tablets 100mcg 1 by E03.9 Unknown Sodium mouth every day thursday -thursday , thursday 200 mcg Metoprolol 09/17/2017 - Hx Tablets 25mg 180tabs 1 by R03.0 Andreea, Tartrate 09/30/2017 mouth Bushra once a ofe Boyle MSN, HOT DIP PLATER Propafenone HCL 09/16/2017 Hx Caps ER 325mg 180caps 1 by I48.0 Clif[place], ER 12HR mouth Torin M., twice a M.D., [facility] day Alendronate 09/04/2016 Hx Solution 70mg/75 12units 1 tab by M85.80 Litvin, Sodium ML mouth Libra, M.D. every week Levothyroxine 09/04/2016 Hx Tablets 125mcg 90tabs 1 by E03.9 Litvin, Sodium mouth Lbira, M.D. every day Levothyroxine 09/01/2016 - Hx Tablets 125mcg 90tabs 1 by Litvin, Sodium 09/04/2016 jeny Smyth M.D. every day Levothyroxine 06/05/2016 - Hx Tablets 150mcg 90tabs 1 by E03.9 An Guy 09/01/2016 jeny Smyth M.D. every day Synthroid - Hx Tablets 150mcg 1 tab qd Unknown 09/04/2016 Folic Acid Hx Tablets 1mg 1 tab po Pily, qd Herman C, DO Vitamin D Hx Capsules 1000Uni 1 po qd Pily, t Herman Cottrell, DO Eszopiclone - Hx Tablets 3mg take 1 Unknown 09/04/2016 tablet at bedtime Metoprolol - Hx Tablets 25mg 1 by R53.83 Unknown Tartrate 08/24/2017 mouth twice a day I48.0 Aspirin Adult Low - Hx Tablets DR 81mg 2 po qd I48.0 Unknown Dose 08/24/2017 Propafenone HCL ER - Hx Caps ER 12HR 325mg 1 by mouth I47.1 Unknown 07/21/2018 daily I47.1 Vital Signs Date Vital Result Comment 07/21/2018 BP Systolic Sitting Left Arm 118 mmHg BP Diastolic Sitting Left Arm 88 mmHg Heart Rate 78 /min Respiratory Rate 16 /min Height 64 inches 5'4" Weight 202.00 lb BMI (Body Mass Index) 34.7 kg/m2 BSA (Body Surface Area) 1.96 m2 [place] body weight in kilograms 54 O2 Saturation Level with Exercise 94 % 09/30/2017 BP Systolic Sitting Right Arm 120 mmHg BP Diastolic Sitting Right Arm 76 mmHg Heart Rate 66 /min Respiratory Rate 16 /min Height 64 inches 5'4" Weight 202.00 lb BMI (Body Mass Index) 34.7 kg/m2 BSA (Body Surface Area) 1.96 m2 [place] body weight in kilograms 54 09/16/2017 BP Systolic Sitting Right Arm 150 mmHg BP Diastolic Sitting Right Arm 90 mmHg Heart Rate 74 /min Respiratory Rate 16 /min Height 64 inches 5'4" Weight 204.00 lb BMI (Body Mass Index) 35.0 kg/m2 BSA (Body Surface Area) 1.97 m2 [place] body weight in kilograms 54 08/24/2017 BP Systolic Sitting Right Arm 118 mmHg BP Diastolic Sitting Right Arm 90 mmHg Heart Rate 64 /min Respiratory Rate 16 /min Height 64 inches 5'4" Weight 204.00 lb BMI (Body Mass Index) 35.0 kg/m2 BSA (Body Surface Area) 1.97 m2 [place] body weight in kilograms 54 09/04/2016 BP Systolic 128 mmHg BP Diastolic 78 mmHg Height 64 inches 5'4" Weight 182.50 lb BMI (Body Mass Index) 31.3 kg/m2 BSA (Body Surface Area) 1.88 m2 [place] body weight in kilograms 54 06/05/2016 BP Systolic 120 mmHg BP Diastolic 70 mmHg Weight 182.25 lb 04/16/2009 Heart Rate 52 /min Regular Respiratory Rate 20 /min Weight 193.00 lb Results Test Date Test Result H/L Range Note Potassium SerPl-sCnc Potassium SerPl-sCnc 3.5 3.5-5.1 7 RDW RBC Auto RDW RBC Auto 51.0 High 3-47 7 RDW RBC Auto-Rto RDW RBC Auto-Rto 17.3 High 11.7-14.4 7 Serum carbon dioxide Serum carbon dioxide 24 21-32 measurement 7 measurement Serum or plasma Serum or plasma 3.3 Low 3.4-5.0 albumin measurement 7 albumin measurement (mass/volume) (mass/volume) Serum or plasma Serum or plasma 139 High 45-117 alkaline phosphatase 7 alkaline phosphatase measurement ( measurement (enzymatic activity/volume) Serum or plasma Serum or plasma 26 15-37 aspartate 7 aspartate aminotransferase aminotransferase measure measurement (enzymatic activity/volume) Serum or plasma Serum or plasma 8.0 Low 8.5-10.1 calcium measurement 7 calcium measurement (mass/volume) (mass/volume) Serum or plasma Serum or plasma 62 26-192 creatine kinase 7 creatine kinase measurement (enzym measurement (enzymatic activity/volume) Serum or plasma Serum or plasma 1.1 0.6-1.3 creatinine measurement 7 creatinine (mass/volum measurement (mass/volume) Serum or plasma Serum or plasma 108 High 74-106 glucose measurement 7 glucose measurement (mass/volume) (mass/volume) Serum or plasma Serum or plasma 7.2 6.4-8.2 protein measurement 7 protein measurement (mass/volume) (mass/volume) Serum or plasma total Serum or plasma total 0.1 Low 0.2-1.0 bilirubin measurement 7 bilirubin measurement (mass/ (mass/volume) Serum or plasma urea Serum or plasma urea 16 7-18 nitrogen measurement 7 nitrogen measurement (mass/vo (mass/volume) Serum sodium Serum sodium 139 136-145 measurement 7 measurement WBC # Bld Auto WBC # Bld Auto 6.0 3.1-10.7 7 Alt SerPl-cCnc Alt SerPl-cCnc 35 12-78 7 Albumin/Glob SerPl Albumin/Glob SerPl 0.8 7 Anion Gap SerPl-sCnc Anion Gap SerPl-sCnc 9 8-16 7 Automated blood Automated blood 0.01 0.0-0.1 basophil count 7 basophil count (count/volume) (count/volume) Automated blood Automated blood 0.08 0.0-0.5 eosinophil count 7 eosinophil count Automated blood Automated blood 36.6 36.0-46.1 hematocrit (volume 7 hematocrit (volume fraction) fraction) Automated blood Automated blood 1.56 1.0-4.0 lymphocyte count 7 lymphocyte count (number/volume) (number/volume) Automated blood Automated blood 259 150-400 platelet count 7 platelet count Automated blood Automated blood 10.1 8.9-12.4 platelet mean volume 7 platelet mean volume measurement measurement Automated erythrocyte Automated erythrocyte 25.6 Low 25.9-32.7 mean corpuscular 7 mean corpuscular hemoglobin hemoglobin (mass per erythrocyte) Automated erythrocyte Automated erythrocyte 30.9 30.8-34.3 mean corpuscular 7 mean corpuscular hemoglobin hemoglobin concentration measurement (mass/volume) Automated erythrocyte Automated erythrocyte 83.0 80.9-99.0 mean corpuscular 7 mean corpuscular volume volume Neutrophils/leuk NFr Neutrophils/leuk NFr 63.1 40.4-72.8 Bld Auto 7 Bld Auto Neutrophils # Bld Auto Neutrophils # Bld 3.75 1.8-7.0 7 Auto Monocytes/leuk NFr Bld Monocytes/leuk NFr 9.2 4.3-13.2 Auto 7 Bld Auto Lymphocytes/leuk NFr Lymphocytes/leuk NFr 26.2 20.0-42.0 Bld Auto 7 Bld Auto Globulin Ser Calc-mCnc Globulin Ser 3.9 1.9-4.3 7 Calc-mCnc GFR/Bsa pred.non black GFR/Bsa pred.non 54 >60 SerPl MDRD-ArVRat 7 black SerPl MDRD-ArVRat Eosinophil/leuk NFr Eosinophil/leuk NFr 1.3 0.0-6.6 Bld Auto 7 Bld Auto Chloride SerPl-sCnc Chloride SerPl-sCnc 106 98-107 7 Blood monocytes Blood monocytes 0.55 0.3-0.9 automated count 7 automated count (number/volume) (number/volume) BUN/Creat SerPl BUN/Creat SerPl 14.5 7 Basophils/leuk NFr Bld Basophils/leuk NFr 0.2 0.0-1.1 Auto 7 Bld Auto Blood erythrocytes Blood erythrocytes 4.41 3.90-5.40 automated count 7 automated count (number/volume) (number/volume) Blood hemoglobin Blood hemoglobin 11.3 Low 11.6-15.8 measurement 7 measurement (mass/volume) (mass/volume) * Miscellaneous * Miscellaneous Test(s) added studies (set) 7 studies (set) Color Ur Color Ur Yellow Yellow 7 Ketones Ur Ketones Ur Negative Negative Strip.auto-mCnc 7 Strip.auto-mCnc Leukocyte esterase Ur Leukocyte esterase Ur Negative Negative Ql Strip.auto 7 Ql Strip.auto Nitrite Ur Ql Nitrite Ur Ql Negative Negative Strip.auto 7 Strip.auto Prot Ur Prot Ur Negative Negative Strip.auto-mCnc 7 Strip.auto-mCnc Serum or plasma free Serum or plasma free 1.04 0.76-1.46 thyroxine (FT4) 7 thyroxine (FT4) measurement ( measurement (mass/volume) Serum or plasma Serum or plasma 2.0 1.8-2.4 magnesium measurement 7 magnesium measurement (mass/volume (mass/volume) TSH SerPl-aCnc TSH SerPl-aCnc 1.58 0.30-4.20 7 Urine appearance Urine appearance Clear Clear determination 7 determination Urine glucose Urine glucose Negative Negative measurement by 7 measurement by automated test strip automated test strip (mass/volume) Urine hemoglobin Urine hemoglobin Negative Negative detection by automated 7 detection by test strip automated test strip Urine total bilirubin Urine total bilirubin Negative Negative detection by automated 7 detection by test automated test strip Urobilinogen Ur Urobilinogen Ur 0.2 0.2-1.0 Strip-aCnc 7 Strip-aCnc pH Ur Strip.auto pH Ur Strip.auto 6.0 Low 6.5-7.5 7 Platelet poor plasma Platelet poor plasma 1.0 0.9-1.1 international 7 international normalized rati normalized ratio (Inr) by coagulation assay (relative time) Prothrombin time (PT) Prothrombin time (PT) 12.8 12.0-14.4 in platelet poor 7 in platelet poor plasma plasma Activated partial Activated partial 27.0 23.4-35.0 thromboplastin time 7 thromboplastin time (aPTT) in pl (aPTT) in platelet poor plasma by coagulation assay CBS W/Automated Diff White Blood Count 4.5 K/uL 3.1-10.7 1 6 Red Blood Count 5.09 M/uL 3.90-5.40 1 Hemoglobin 12.7 gm/dL 11.6-15.8 1 Hematocrit 41.7 % 36.0-46.1 1 Mean Cell Volume 81.9 fl 80.9-99.0 1 Mean Corpuscular HGB 25.0 pg Low 25.9-32.7 1 Mean Corpuscular HGB Conc 30.5 g/dL Low 30.8-34.3 1 Platelet Count 276 K/uL 155-360 1 Red Cell Distri Width SD 44.4 fl 3-47 1 Red Cell Distri Width %CV 15.0 % High 11.7-14.4 1 Mean Platelet Volume 10.4 fL 8.9-12.4 1 Neut% 51.2 % 40.4-72.8 1 Lymph % 37.4 % 17.0-46.1 1 [place] % 9.2 % 4.3-13.2 1 Eo% 2.0 % 0.0-6.6 1 Bas% 0.2 % 0.0-1.1 1 Neut# 2.29 K/uL 1.8-7.0 1 Lymph # 1.67 K/uL Low 1.8-7.0 1 [place] # 0.41 K/uL 0.3-0.9 1 Eos # 0.09 K/uL 0.0-0.5 1 Baso # 0.01 K/uL 0.0-0.1 1 Comprehensive Metabolic Panel 08/30/2016 Glucose 103 mg/dL 74-106 1 BUN 16 mg/dL 7-18 1 Creatinine 0.9 mg/dL 0.6-1.3 1 Glom Filtration Rate, Estimate >60 mL/min >60 1 If >60 mL/min >60 1, 2 BUN/Creat 17.7 ratio 1 Sodium 140 mmol/L 136-145 1 Potassium 3.9 mmol/L 3.5-5.1 1 Chloride 107 mmol/L 98-107 1 Carbon Dioxide 26 mmol/L 21-32 1 Anion Gap 7 mEq/L Low 8-16 1 Calcium 8.7 mg/dL 8.5-10.1 1 Total Protein 7.2 g/dL 6.4-8.2 1 Albumin 3.5 g/dL 3.4-5.0 1 Globulin 3.7 g/dL 1.9-4.3 1 Alb/Glob 0.9 ratio 1 Bilirubin,Total 0.3 mg/dL 0.2-1.0 1 Sgot/Ast 17 U/L 15-37 1 SGPT/Alt 22 U/L 12-78 1 Alkaline Phosphatase 92 U/L 45-117 1 LDL Cholesterol Profile 08/30/2016 Cholesterol 204 mg/dL High <200 1, 3 Triglycerides 125 mg/dL <150 1, 4 HDL Cholesterol 58 mg/dL >40 1, 5 LDL-Cholesterol 121 mg/dL < 100 1, 6 Laboratory test finding 08/30/2016 Free T4 1.71 ng/dL High 0.76-1.46 1 Thyroid Stim Hormone < 0.01 uIU/mL Low 0.30-4.20 1 Laboratory test finding 05/15/2016 Alanine Aminotransferase (Alt/SGPT) 20 12-78 Albumin 3.1 Low 3.4-5.0 Albumin/Globulin Ratio 0.9 Alkaline Phosphatase 89 45-117 Anion Gap 7 Low 8-16 Aspartate Amino Transf (Ast/Sgot) 13 Low 15-37 BUN/Creatinine Ratio 16.2 Basophils # (Auto) 0.01 0.0-0.1 Basophils (%) (Auto) 0.2 0.0-1.1 Blood Urea Nitrogen 13 7-18 Calcium Level 8.4 Low 8.5-10.1 Carbon Dioxide Level 26 21-32 Chloride Level 107 98-107 Creatinine 0.8 0.6-1.3 Eosinophils # (Auto) 0.06 0.0-0.5 Eosinophils (%) (Auto) 1.3 0.0-6.6 Globulin 3.6 1.9-4.3 Glucose Screen 94 74-106 Hematocrit 37.5 36.0-46.1 Hemoglobin 11.8 11.6-15.8 Lymphocytes # (Auto) 1.37 Low 1.8-7.0 Lymphocytes (%) (Auto) 29.5 17.0-46.1 Magnesium Level 1.9 1.8-2.4 Mean Corpuscular Hemoglobin 26.2 25.9-32.7 Mean Corpuscular Hemoglobin Concent 31.5 30.8-34.3 Mean Corpuscular Volume 83.1 80.9-99.0 Mean Platelet Volume 10.9 8.9-12.4 Monocytes # (Auto) 0.41 0.3-0.9 Monocytes (%) (Auto) 8.8 4.3-13.2 Neutrophils # (Auto) 2.80 1.8-7.0 Neutrophils (%) (Auto) 60.2 40.4-72.8 Platelet Count 205 155-360 Potassium Level 3.2 Low 3.5-5.1 RDW Coefficient of Variation 14.8 High 11.7-14.4 Red Blood Count 4.51 3.90-5.40 Red Cell Distribution Width 43.7 3-47 Sodium Level 140 136-145 Total Bilirubin 0.1 Low 0.2-1.0 Total Creatine Kinase 82 26-192 Total Protein 6.7 6.4-8.2 White Blood Count 4.7 3.1-10.7 Laboratory test finding 05/15/2016 Urine Bilirubin Negative Negative Urine Blood Negative Negative Urine Clarity Clear Clear Urine Color Straw Yellow Urine Glucose (Ua) Negative Negative Urine Ketones Negative Negative Urine Leukocyte Esterase Negative Negative Urine Nitrite Negative Negative Urine Protein Negative Negative Urine Urobilinogen 0.2 0.2-1.0 Urine pH 5.5 Low 6.5-7.5 Laboratory test finding 01/04/2015 Thyroid Stim 7.97 uIU/mL High 0.36- 3.74 Hormone Laboratory test finding 01/04/2015 Aot Request Test(s) added 7 1 E03.9 2 Note: Persistent reduction for 3 months or more in an eGFR <60 mL/min/1.73 m2 defines CKD. Patients with eGFR values >/=60 mL/min/1.73 m2 may also have CKD if evidence of persistent proteinuria is present. The original MDRD equation for estimated GFR is not valid for patients less than 18 years of age. Additional information may be found at www.kdoqi.org. 3 Reference Guidelines*: Desirable: ........... < 200 mg/dL Borderline High: ..... 200-239 mg/dL High: ................ >=240 mg/dL * The National Cholesterol Education Program (NCEP) 4 Reference Guidelines*: Normal: ............. < 150 mg/dL Borderline High: .... 150-199 mg/dL High: ............... 200-499 mg/dL Very High: .......... > 500 mg/dL * Source: National Cholesterol Education Program (NCEP) 5 Reference Guidelines*: Low HDL: ..... < 40 mg/dL Normal: ..... 40-60 mg/dL Desirable: ... > 60 mg/dL *The National Cholesterol Education Program(NCEP) 6 Reference Guidelines*: Optimal:........... <100 mg/dL Near Optimal....... 100-129 mg/dL Borderline High.... 130-159 mg/dL High............... 160-189 mg/dL Very High.......... >=190 mg/dL * Source: National Cholesterol Education Program (NCEP) 7 Tests: TSH Instructions: Procedures Date CPT Code Description Status 07/21/2018 47833 EKG-Tracing And Report Completed 09/30/2017 06786 Echocardiogram Complete Completed 09/30/2017 03887 EKG-Tracing And Report Completed 09/17/2017 98713 Event Monitor Inter/Review Only Completed 09/16/2017 60384 EKG-Tracing And Report Completed 08/24/2017 74805 EKG-Tracing And Report Completed 07/08/2017 10408 Event Monitor Inter/Review Only Completed 01/05/2015 15100 Stress Test Interpre And Report Only Completed 01/05/2015 39509 Stress Test Physician Super Only Completed 01/05/2015 32159 Stress Test Physician Super Only Completed 12/27/2014 37100 Stress Test Physician Super Only Completed 12/27/2014 62034 Stress Test Physician Super Only Completed 12/27/2014 94180 Stress Test Interpre And Report Only Completed 03/24/2014 41650 Event Monitor Inter/Review Only Completed 03/23/2014 20101 Echocardiogram Complete Completed 09/14/2012 Colonoscopy Completed 04/15/2010 14576 Event Monitor Inter/Review Only Completed 10/22/2009 86106 Holter Monitor 24HR Inter/Report Completed 04/16/2009 90231 EKG-Tracing And Report Completed 10/19/2008 84650 Echocardiogram Complete Completed 10/19/2008 70786 Holter Monitor 24HR Inter/Report Completed 09/14/2004 Mammogram Completed Encounters Type Date Location Provider CPT E/M Dx Office Visit 07/21/2018 2:40p Cardiology Office Bushra Doran 77994 I47.1 [place], MSN, HOT DIP PLATER I48.0 R03.0 E03.9 Office Visit 09/30/2017 3:00p Cardiology Office Bushra Doran 24778 I48.0 MSN, HOT DIP PLATER R03.0 E03.9 Office Visit 09/16/2017 2:20p Cardiology Office Bushra Doran, 59095 I48.0 MSN, HOT DIP PLATER R03.0 E03.9 Office Visit 08/24/2017 10:20a [place] [address] I48.0 R53.83 R06.02 Office Visit 09/04/2016 9:30a Endocrinology Libra Guy M.D. 75009 E66.9 E03.9 M85.80 Office Visit 06/05/2016 10:30a Endocrinology Libra Guy M.D. 66414 E66.9 E03.9 Office Visit 01/04/2015 11:15a [place] [address] 786.50 Office Visit 03/24/2014 4:24p Cardiology Office Torin Laoz 59648 427.89 Blake Rehman, FACC [facility] 427.[facility] Blake 244.9 Plan of Care Future Appointment(s):09/10/2018 9:40 am - Torin Lazo M.D., FACC at Cardiology [facility]7107/21/2018 - Bushra Doran, MSN, FNPI47.1 Supraventricular tachycardiaNew Medication:Flecainide Acetate 50 mgComments:I will switch her to flecainide twice daily.I48.0 Paroxysmal atrial fibrillationNew Orders:Overnight OximetryComments:Will get an overnight oximetry to screen for OSAR03.0 Elevated blood-pressure reading, w/o diagnosis of htnComments:Monitor.E03.9 Hypothyroidism, unspecifiedComments: Monitor.AllFollow up:Follow up visit in one month.
[2018-08-18 10:27] VITALS: BP 152/92
--- NOTE | 2018-08-18 11:28 | UC ---
Abdominal Pain Female HPI - HPI Summary HPI Summary: 58 y/o female presents to the urgent care c/o headache, and abdominal cramping pain relief w/ diarrhea for the past 4 days. Last episode of diarrhea was this morning. She has had 3 episodes/ day of watery diarrhea. She also has decrease appetite and this morning she woke up w/ mild PURI. Pain is 4/20. Her symptoms started w/ a common cold and then diarrhea developed. She still has mild nasal congestion w/ clear nasal discharge. Pt needs a note for work to return to work. Pt denies eating outside or something new, fever, SOB, chest pain, N/V. Pt has taken Ibuprofen PO to alleviate PURI. - History of Current Complaint Chief Complaint: UCAbdominalPain Stated Complaint: HEADACHE, STOMACH PAIN Time Seen by Provider: 08/18/18 11:25 Hx Obtained From: Patient Hx Last Menstrual Period: na ?: No Onset/Duration: Gradual Onset, Lasting Days - 4 days, Resolved Timing: Intermittent Episodes Lasting: - seconds Severity Initially: Moderate Severity Currently: Mild Pain Intensity: 2 Pain Scale Used: 0-10 Numeric Location: Diffuse - abdominal cramping pain relief w/ diarrhea Radiates: No Character: Cramping Aggravating Factor(s): Food Alleviating Factor(s): OTC Analgesics, NPO Associated Signs and Symptoms: Positive: Decreased Appetite, Diarrhea. Negative : Diaphoresis, Fever, Cough, Back Pain, Constipation, Urinary Symptoms, Vaginal Discharge, Nausea, Vomiting - Risk Factors Ectopic Risk Factor: Negative Ovarian Torsion Risk Factor: Negative Allergies/Adverse Reactions: Allergies Allergy/AdvReac Type Severity Reaction Status Date / Time kiwi Allergy Swelling Verified 08/18/18 10:28 Of Face,Lips,& Throat Home Medications: Home Medications Flecainide TAB(NF) 1 tab PO DAILY 08/18/18 [History Confirmed 08/18/18] PMH/Surg Hx/FS Hx/Imm Hx Previously Healthy: Yes Endocrine History: Hypothyroidism Cardiovascular History: Hypertension, Atrial Fibrillation - Surgical History Surgical History: Yes Surgery Procedure, Year, and Place: THYROID - RADIATED, GASTRIC BYPASS 2002, gallbladder, uterine ablation - Family History Known Family History: Positive: Cardiac Disease, Hypertension, Diabetes - Social History Occupation: Employed Full-time Lives: With Family Alcohol Use: Occasionally Alcohol Amount: 2 Substance Use Type: None Smoking Status (MU): Never Smoked Tobacco Have You Smoked in the Last Year: No - Immunization History Most Recent Influenza Vaccination: Fall 2015 Review of Systems All Other Systems Reviewed And Are Negative: Yes Constitutional: Positive: Negative Skin: Positive: Negative Eyes: Positive: Negative ENT: Positive: Negative Respiratory: Positive: Negative Cardiovascular: Positive: Negative Gastrointestinal: Positive: Abdominal Pain - diffuse cramping abdominal pain, Diarrhea Genitourinary: Positive: Negative Motor: Positive: Negative Neurovascular: Positive: Negative Musculoskeletal: Positive: Negative Neurological: Positive: Headache Psychological: Positive: Negative Is Patient Immunocompromised?: No Physical Exam - Summary Physical Exam Summary: Vital Signs Reviewed: Yes General:Patient is a well developed and nourished female who is sitting comfortable in the examining table. Patient is not in any acute respiratory distress. Eyes: Positive: Conjunctiva Clear - PERRLA, EOMI, fundi grossly normal ENT: Positive: Normal ENT inspection, Hearing grossly normal, Pharynx normal, TMs normal Neck: Positive: Supple, Nontender, No Lymphadenopathy Respiratory: Positive: Chest non-tender, Lungs clear, Normal breath sounds, No respiratory distress Cardiovascular: Positive: RRR,S1 and S2 present, No Murmur, Pulses Normal, Brisk Capillary Refill Abdomen Description: Positive: Nontender, Other: - Abd: Flat with no distention. No surface trauma, scars, incisions. hyperactive bowel sounds present in all four quadrants. No tenderness, guarding, rigidity to palpation. No masses palpated, no pulsation in epigastric area. No organomegaly. Negative [place] signs. No periumbilical tenderness. No rebound in the lower quadrants. NT over McBurneys point. Good femoral pulses bilaterally. No hernia noted. No CVAT bilaterally Musculoskeletal: Positive: Strength Intact, ROM Intact, No Edema,FROM in all major joints, no edema, no cyanosis or clubbing. Neuro: Alert and oriented x 3. No acute neurological deficits. Speech is normal. Psychological: WNL Skin: Dry and warm Triage Information Reviewed: Yes Vital Signs: Initial Vital Signs Temp 98.7 F 08/18/18 10:25 Pulse 76 08/18/18 10:25 Resp 17 08/18/18 10:25 BP 152/92 08/18/18 10:25 Pulse Ox 98 08/18/18 10:25 Abd Pain Female Course/Dx - Course Course Of Treatment: 58 y/o female presents to the urgent care c/o headache, and abdominal cramping pain relief w/ diarrhea for the past 4 days. Last episode of diarrhea was this morning. She has had 3 episodes/ day of watery diarrhea. She also has decrease appetite and this morning she woke up w/ mild PURI. Pain is 4/20. Her symptoms started w/ a common cold and then diarrhea developed. She still has mild nasal congestion w/ clear nasal discharge. Pt needs a note for work to return to work. Pt denies eating outside or something new, fever, SOB, chest pain, N/V. Pt has taken Ibuprofen PO to alleviate PURI. Hx obtained. Pt most likely with a Viral gastroenteritis. PE: WNL. PT advised to increase fluid intake, eat soft meals, rest. However if symptoms worsen and abdominal pain develops to go Immediately to the ER for further management. Pt given excuse for work. Pt explained D/C instructions. Pt's BP is elevated today advised to decrease salt in diet, monitor BP and f/u with PCP for further management. Pt understood and agreed w/ plan of care. Pt left the clinic ambulating, A&OX3 - Differential Dx/Diagnosis Differential Diagnosis: Appendicitis, Diverticulitis, Urinary Tract Infection, Other - Viral gastrenteritis Provider Diagnosis: Gastroenteritis and colitis, viral, Uncontrolled hypertension Discharge - Sign-Out/Discharge Documenting (check all that apply): Patient Departure - d/c home All imaging exams completed and their final reports reviewed: No Studies - Discharge Plan Condition: Stable Disposition: HOME Prescriptions: Acetaminophen TAB* [Tylenol TAB*] 650 mg PO Q6H PRN #30 tab PRN Reason: Headache Patient Education Materials: Gastroenteritis (ED), Low-Sodium Diet (ED) Forms: *Work Release Referrals: Jonathan Hawthorne MD [Primary Care Provider] - 2 Days Additional Instructions: 1- Please increase fluid intake w/ Gatorade or Pedialyte , eat well, small portions, rest. avoid strenuous exercises 2-take Tylenol PO to alleviate PURI. Stop Ibuprofen PO 3- If he develops fever or abdominal pain w/ recurrent episodes of diarrhea please go to the ER, otherwise f/u with your PCP if diarrhea not resolving in 2 -3 days 4- Your BP is elevated today. please decrease salt in your diet, monitor BP and if it continues to be elevated please f/u with your PCP for further management - Billing Disposition and Condition Condition: STABLE Disposition: Home
== END 2018-08-18 11:57 | disposition home or self-care (01) ==
LOC: UCEAST 10:09
DX: A08.4 Viral intestinal infection, unspecified (principal); I10 Essential (primary) hypertension
CPT/HCPCS: 99212; G0463

== ENCOUNTER 2018-08-29 15:16 | Emergency (ER) | payer OTHER ==
[2018-08-29 15:23] VITALS: BP 148/84
--- NOTE | 2018-08-29 16:03 | UC ---
Abdominal Pain Female HPI - HPI Summary HPI Summary: Started w/ LLQ pain this AM. Per pt. she feels like her diverticulitis is returning. Denies fever, vomiting, blood in stool. Does have nausea. Did have a small BM today w/ no issue. - History of Current Complaint Chief Complaint: UCAbdominalPain Stated Complaint: ABD PAIN LEFT SIDE Time Seen by Provider: 08/29/18 15:36 Hx Obtained From: Patient Hx Last Menstrual Period: na ?: No Onset/Duration: Sudden Onset Timing: Constant Severity Initially: Moderate Severity Currently: Moderate Pain Intensity: 8 Pain Scale Used: 0-10 Numeric Location: Discrete At: LLQ Radiates: No Character: Aching, Burning, Colicy Aggravating Factor(s): Nothing Alleviating Factor(s): Nothing Allergies/Adverse Reactions: Allergies Allergy/AdvReac Type Severity Reaction Status Date / Time azithromycin [From Zithromax] Allergy Severe a fib Verified 08/29/18 15:23 kiwi Allergy Swelling Verified 08/29/18 15:23 Of Face,Lips,& Throat Home Medications: Home Medications Levothyroxine TAB* [Synthroid 125 MCG TAB*] 100 mcg PO SEE INSTRUCTIONS [History Confirmed 08/29/18] PMH/Surg Hx/FS Hx/Imm Hx Endocrine History: Thyroid Disease, Other - obesity GI/ History: Diverticulitis - Surgical History Surgical History: Yes Surgery Procedure, Year, and Place: THYROID - RADIATED, GASTRIC BYPASS 2002, gallbladder, uterine ablation - Family History Known Family History: Positive: Cardiac Disease, Hypertension, Diabetes - Social History Alcohol Use: Occasionally Alcohol Amount: 2 Substance Use Type: None Smoking Status (MU): Never Smoked Tobacco Have You Smoked in the Last Year: No - Immunization History Most Recent Influenza Vaccination: Fall 2015 Review of Systems All Other Systems Reviewed And Are Negative: Yes Constitutional: Positive: Negative. Negative: Fever Skin: Positive: Negative Respiratory: Positive: Negative Cardiovascular: Positive: Negative Gastrointestinal: Positive: Abdominal Pain, Nausea. Negative: Vomiting, Diarrhea Genitourinary: Negative: Hematuria Neurological: Negative: Weakness Physical Exam Triage Information Reviewed: Yes Appearance: Well-Appearing Vital Signs: Initial Vital Signs Temp 99.3 F 08/29/18 15:20 Pulse 78 08/29/18 15:20 Resp 16 08/29/18 15:20 BP 148/84 08/29/18 15:20 Pulse Ox 98 08/29/18 15:20 Vital Signs Reviewed: Yes Respiratory Exam: Normal Cardiovascular Exam: Normal Abdomen Description: Positive: Soft. Negative: CVA Tenderness (R), CVA Tenderness (L), Distended, Guarding, Hepatomegaly, McBurney's Point Tenderness Neurological: Negative: Fatigued Skin Exam: Normal Abd Pain Female Course/Dx - Course Course Of Treatment: Acute LLQ pain in an afebrile pt. w/ a hx of diverticulitis; suspect uncomplicated diverticulitis. BP good and not tachycardic. Appears uncomplicated although CT unavailable. STrongly recommended she go to ED for CT where we can see if a perforation is present. This is unlikely since no perotinitis and abd pain not severe at all. No rebound or guarding. She declined ED and she will call her pcp in AM to get scan and get re-evaluated. In the mean time i have sent two antibiotics to the pharmacy until then. I have advised her to go to the ED should she become worse , feverish, or any new symptoms. - Differential Dx/Diagnosis Differential Diagnosis: Constipation, Diverticulitis, Urinary Tract Infection Provider Diagnosis: Abdominal pain in female Discharge - Sign-Out/Discharge Documenting (check all that apply): Patient Departure All imaging exams completed and their final reports reviewed: No Studies - Discharge Plan Condition: Fair Disposition: HOME-RECOMMEND TO ED Prescriptions: Ciprofloxacin TAB* [Cipro 500 MG TAB*] 500 mg PO BID 7 Days tab metroNIDAZOLE [Metronidazole] 500 mg PO TID 7 Days #15 tablet Patient Education Materials: Diverticulitis (ED) Forms: *Work Release Referrals: Jonathan Hawthorne MD [Primary Care Provider] - Additional Instructions: Please go to the Emergency room. As discussed the only way to know if your intestines have severe infection is with the CAT SCAN. If you do not go to the Emergency room please call your pcp benjamín to obtain a CT Scan outpatient. I am sending your antibiotics today. - Billing Disposition and Condition Condition: FAIR Disposition: Home-Recommend to ED
== END 2018-08-29 16:21 | disposition home health service (06) ==
LOC: UCCORT 15:16
DX: R10.32 Left lower quadrant pain (principal); Z88.1 Allergy status to other antibiotic agents
CPT/HCPCS: 99211; G0463

== ENCOUNTER 2018-11-09 08:15 | Emergency (ER) | payer OTHER ==
[2018-11-09 08:30] VITALS: BP 150/82
--- NOTE | 2018-11-09 08:38 | UC ---
Throat Pain/Nasal Kali HPI - HPI Summary HPI Summary: nasal congestion cough x 3 days cough is dry, harsh , worse at nights no sore throat, no fever, + chills - History of Current Complaint Chief Complaint: UCGeneralIllness Stated Complaint: COUGH,CONGESTION Time Seen by Provider: 11/09/18 08:26 Hx Obtained From: Patient Hx Last Menstrual Period: na Onset/Duration: Gradual Onset, Lasting Days - 3, Still Present Severity: Moderate Pain Intensity: 6 Cough: Nonproductive Associated Signs & Symptoms: Positive: Nasal Discharge. Negative: Dysphagia, FB Sensation, Drooling, Wheezing, Hoarseness, Sinus Discomfort, Fever, Vomiting , Rash - Allergies/Home Medications Allergies/Adverse Reactions: Allergies Allergy/AdvReac Type Severity Reaction Status Date / Time azithromycin [From Zithromax] Allergy Severe a fib Verified 11/09/18 08:28 kiwi Allergy Swelling Verified 11/09/18 08:28 Of Face,Lips,& Throat Home Medications: Home Medications Pseudoephedrine HCl [Nasal Decongestant] 30 mg PO ONCE 11/09/18 [History Confirmed 11/09/18] PMH/Surg Hx/FS Hx/Imm Hx - Additional Past Medical History Additional PMH: THYROID - RADIATED, GASTRIC BYPASS 2002, gallbladder, uterine ablation [ End ] Endocrine History: Thyroid Disease Cardiovascular History: Hypertension - Surgical History Surgical History: Yes Surgery Procedure, Year, and Place: THYROID - RADIATED, GASTRIC BYPASS 2002, gallbladder, uterine ablation - Family History Known Family History: Positive: Cardiac Disease, Hypertension, Diabetes - Social History Alcohol Use: Occasionally Alcohol Amount: 2 Substance Use Type: None Smoking Status (MU): Never Smoked Tobacco Have You Smoked in the Last Year: No - Immunization History Most Recent Influenza Vaccination: Fall 2015 Review of Systems All Other Systems Reviewed And Are Negative: Yes Constitutional: Positive: Chills, Fatigue Skin: Positive: Negative Eyes: Positive: Negative ENT: Positive: Nasal Discharge Respiratory: Positive: Cough Cardiovascular: Positive: Negative Is Patient Immunocompromised?: No Physical Exam Triage Information Reviewed: Yes Appearance: Well-Appearing, No Pain Distress, Well-Nourished Vital Signs: Initial Vital Signs Temp 99.3 F 11/09/18 08:27 Pulse 67 11/09/18 08:27 Resp 16 11/09/18 08:27 BP 150/82 11/09/18 08:27 Pulse Ox 99 11/09/18 08:27 Vital Signs Reviewed: Yes Eye Exam: Normal Eyes: Positive: Conjunctiva Clear ENT: Positive: Normal ENT inspection, Hearing grossly normal, Pharynx normal, Nasal congestion, TMs normal. Negative: Pharyngeal erythema, Nasal drainage, Tonsillar swelling, Tonsillar exudate Neck: Positive: Supple, Nontender, No Lymphadenopathy Respiratory: Positive: Chest non-tender, Lungs clear, Normal breath sounds Cardiovascular: Positive: RRR, No Murmur, Pulses Normal Skin Exam: Normal Throat Pain/Nasal Course/Dx - Differential Dx/Diagnosis Provider Diagnosis: URI (upper respiratory infection) Discharge - Sign-Out/Discharge Documenting (check all that apply): Patient Departure All imaging exams completed and their final reports reviewed: No Studies - Discharge Plan Condition: Stable Disposition: HOME Prescriptions: Benzonatate CAP* [Tessalon 100 MG CAP*] 100 mg PO TID PRN #15 cap PRN Reason: Cough Patient Education Materials: Upper Respiratory Infection (DC) Forms: *Work Release Referrals: Jonathan Hawthorne MD [Primary Care Provider] - If Needed - Billing Disposition and Condition Condition: STABLE Disposition: Home
== END 2018-11-09 08:40 | disposition home or self-care (01) ==
LOC: UCCORT 08:15
DX: J06.9 Acute upper respiratory infection, unspecified (principal); Z88.1 Allergy status to other antibiotic agents; Z91.018 Allergy to other foods
CPT/HCPCS: 99212; G0463

== ENCOUNTER 2018-11-28 11:00 | Emergency (ER) | payer OTHER ==
[2018-11-28 11:25] VITALS: BP 151/91
--- NOTE | 2018-11-28 12:34 | UC ---
Ear Complaint HPI - HPI Summary HPI Summary: Pt has had URI symptoms for over 2 weeks which started with sinus pressure. Overr the past 2 days, she has had left ear pain which has been worsening. - History of Current Complaint Chief Complaint: UCEar Stated Complaint: LEFT EAR/THROAT PAIN Time Seen by Provider: 11/28/18 12:24 Hx Obtained From: Patient Hx Last Menstrual Period: na ?: No Onset/Duration: Gradual Onset Severity Initially: Moderate Severity Currently: Mild Pain Intensity: 8 Aggravating Factors: Nothing Alleviating Factors: Nothing Associated Signs/Symptoms: Positive: URI Symptoms - Allergies/Home Medications Allergies/Adverse Reactions: Allergies Allergy/AdvReac Type Severity Reaction Status Date / Time azithromycin [From Zithromax] Allergy Severe a fib Verified 11/28/18 11:20 kiwi Allergy Swelling Verified 11/28/18 11:20 Of Face,Lips,& Throat PMH/Surg Hx/FS Hx/Imm Hx Previously Healthy: Yes Cardiovascular History: Atrial Fibrillation - Under good control - Surgical History Surgical History: Yes Surgery Procedure, Year, and Place: THYROID - RADIATED, GASTRIC BYPASS 2002, gallbladder, uterine ablation - Family History Known Family History: Positive: Cardiac Disease, Hypertension, Diabetes - Social History Alcohol Use: Occasionally Alcohol Amount: 2 Substance Use Type: None Smoking Status (MU): Never Smoked Tobacco Have You Smoked in the Last Year: No - Immunization History Most Recent Influenza Vaccination: Fall 2015 Review of Systems All Other Systems Reviewed And Are Negative: Yes Constitutional: Positive: Negative Skin: Positive: Negative Eyes: Positive: Negative ENT: Positive: Ear Ache - Left earache, Nasal Discharge, Sinus Congestion. Negative: Sinus Pain/Tenderness Respiratory: Positive: Negative Cardiovascular: Positive: Negative Genitourinary: Positive: Negative Motor: Positive: Negative Neurovascular: Positive: Negative Musculoskeletal: Positive: Negative Neurological: Positive: Negative Psychological: Positive: Negative Is Patient Immunocompromised?: No Physical Exam Triage Information Reviewed: Yes Appearance: Well-Appearing, No Pain Distress, Well-Nourished Vital Signs: Initial Vital Signs Temp 97.8 F 11/28/18 11:18 Pulse 86 11/28/18 11:18 Resp 18 11/28/18 11:18 BP 151/91 11/28/18 11:18 Pulse Ox 100 11/28/18 11:18 Vital Signs Reviewed: Yes Eye Exam: Normal ENT: Positive: Pharynx normal - Greenish/yellow post-nasal drainage, Left TM with erythema and moderate landmarks, right TM normal, sinuses non-tender, Uvula midline. Negative: Tonsillar swelling, Tonsillar exudate, Trismus, Muffled voice Neck exam: Normal Neck: Positive: Supple, Nontender, No Lymphadenopathy Respiratory Exam: Normal Respiratory: Positive: Lungs clear, Normal breath sounds, No respiratory distress Cardiovascular Exam: Normal Cardiovascular: Positive: RRR, No Murmur, Pulses Normal, Brisk Capillary Refill Musculoskeletal Exam: Normal Neurological Exam: Normal Psychological Exam: Normal Skin Exam: Normal Ear Complaint Course/Dx - Course Course Of Treatment: Pt comfortable here. I removed a small amount of cerumen from left ear in order to visualize erythematous left TM. Sinuses no longer tender. - Differential Dx/Diagnosis Differential Diagnosis/HQI/PQRI: Otitis Media Provider Diagnosis: Left otitis media Discharge - Sign-Out/Discharge Documenting (check all that apply): Patient Departure All imaging exams completed and their final reports reviewed: No Studies - Discharge Plan Condition: Good Disposition: HOME Prescriptions: Amoxicillin/Clavulanate TAB* [Augmentin TAB 875*] 875 mg PO BID 10 Days #20 tab Patient Education Materials: Ear Infection (ED) Referrals: Jonathan Hawthorne MD [Primary Care Provider] - Additional Instructions: Definite follow up with your primary care provider in 3-4 days if no improvemnt. Take the Augmentin with food - Billing Disposition and Condition Condition: GOOD Disposition: Home - Attestation Statements Provider Attestation: Per institutional requirements, I have reviewed the chart, however, I was not consulted specifically or made aware of this patient by the midlevel provider. I did not personally evaluate, interact with , or disposition this patient.
== END 2018-11-28 12:42 | disposition home or self-care (01) ==
LOC: UCCORT 11:00
DX: H66.92 Otitis media, unspecified, left ear (principal); J34.89 Other specified disorders of nose and nasal sinuses; Z88.1 Allergy status to other antibiotic agents; Z91.018 Allergy to other foods
CPT/HCPCS: 99212; G0463

== ENCOUNTER 2018-12-26 07:48 | Emergency (ER) | payer OTHER ==
[2018-12-26 08:07] VITALS: BP 126/77
[2018-12-26] MEDS ORDERED: cefTRIAXone VIAL(*) 1,000 MG VIAL IM ONE (08:46)
--- NOTE | 2018-12-26 08:49 | UC ---
Complaint Female HPI - HPI Summary HPI Summary: 58 yo female with dysuria/urgency and frequency x 3 days This AM fever and right back and flank pain NO ABD PAIN no n/v/d - History Of Current Complaint Chief Complaint: UCGU Stated Complaint: LOW BACK PAIN,FEVER,URINARY COMPLAINT Time Seen by Provider: 12/26/18 08:13 Hx Obtained From: Patient Hx Last Menstrual Period: na Onset/Duration: Gradual Onset, Lasting Days Timing: Constant Severity Initially: Mild Severity Currently: Moderate Pain Intensity: 6 Pain Scale Used: 0-10 Numeric Character: Colicy Aggravating Factor(s): Nothing Alleviating Factor(s): Nothing Associated Signs And Symptoms: Positive: Fever, Back Pain - Allergies/Home Medications Allergies/Adverse Reactions: Allergies Allergy/AdvReac Type Severity Reaction Status Date / Time azithromycin [From Zithromax] Allergy Severe a fib Verified 11/28/18 11:20 kiwi Allergy Swelling Verified 11/28/18 11:20 Of Face,Lips,& Throat PMH/Surg Hx/FS Hx/Imm Hx Previously Healthy: Yes Cardiovascular History: Hypertension - Surgical History Surgical History: Yes Surgery Procedure, Year, and Place: THYROID - RADIATED, GASTRIC BYPASS 2002, gallbladder, uterine ablation - Family History Known Family History: Positive: Cardiac Disease, Hypertension, Diabetes - Social History Alcohol Use: Occasionally Alcohol Amount: 2 Substance Use Type: None Smoking Status (MU): Never Smoked Tobacco Have You Smoked in the Last Year: No - Immunization History Most Recent Influenza Vaccination: Fall 2015 Review of Systems All Other Systems Reviewed And Are Negative: Yes Constitutional: Positive: Fever, Chills, Fatigue Skin: Positive: Negative Eyes: Positive: Negative ENT: Positive: Negative Respiratory: Positive: Negative Cardiovascular: Positive: Negative Gastrointestinal: Positive: Negative Genitourinary: Positive: Dysuria, Frequency, Urgency Motor: Positive: Negative Neurovascular: Positive: Negative Musculoskeletal: Positive: Arthralgia Neurological: Positive: Negative Psychological: Positive: Negative Physical Exam Triage Information Reviewed: Yes Appearance: Well-Appearing, No Pain Distress, Well-Nourished Vital Signs: Initial Vital Signs Temp 100.4 F 12/26/18 08:02 Pulse 94 12/26/18 08:02 Resp 16 12/26/18 08:02 BP 126/77 12/26/18 08:02 Pulse Ox 99 12/26/18 08:02 Vital Signs Reviewed: Yes Eyes: Positive: Conjunctiva Clear ENT: Positive: Hearing grossly normal. Negative: Nasal congestion, Nasal drainage, Trismus, Muffled voice, Hoarse voice Neck: Positive: Supple, Nontender, No Lymphadenopathy Respiratory: Positive: Lungs clear, Normal breath sounds, No respiratory distress, No accessory muscle use Cardiovascular: Positive: RRR, No Murmur Abdomen Description: Positive: Nontender, No Organomegaly, Soft, CVA Tenderness (R). Negative: CVA Tenderness (L), Distended, Guarding Bowel Sounds: Positive: Present Musculoskeletal: Positive: ROM Intact, No Edema Neurological: Positive: Alert Psychological Exam: Normal Skin Exam: Normal Complaint Female Dx - Course Course Of Treatment: I suggested that the pt opt to go to the ER where she could get stat lab work Pt decline but she will allow us to give her an IM injection here - Differential Dx/Diagnosis Provider Diagnosis: Pyelonephritis, acute Discharge - Sign-Out/Discharge Documenting (check all that apply): Patient Departure All imaging exams completed and their final reports reviewed: No Studies - Discharge Plan Condition: Stable Disposition: HOME Prescriptions: Cephalexin CAP* [Keflex CAP*] 500 mg PO BID #14 cap Patient Education Materials: Kidney Infection (ED) Additional Instructions: As discussed people with kidney infections sometimes get admitted to the hospital Please go to the ER- IF YOU FEEL SICKER IF YOUR PAIN INCREASES IF YOU START VOMITING IF YOU ARE STILL RUNNING A FEVER IN [address] Hawthorne in 1-2 days for recheck you were given a 1 gm shot of rocephin here take your next dose of antibiotics around dinner time - Billing Disposition and Condition Condition: STABLE Disposition: Home
[2018-12-26] MEDS ORDERED: Lidocaine 1%* 5 ML VIAL INJ ONE (08:50)
[2018-12-26] MEDS ORDERED: Acetaminophen TAB* 325 MG PO ONE (09:36)
--- NOTE | 2018-12-28 07:07 | UC ---
- Progress Note Progress Note: urine > 100,000 E. Coli on Cephalexin await sensitivity ljj 12/28/18 Course/Dx - Diagnoses Provider Diagnoses: Pyelonephritis, acute Discharge - Sign-Out/Discharge Documenting (check all that apply): Post-Discharge Follow Up All imaging exams completed and their final reports reviewed: No Studies - Discharge Plan Condition: Stable Disposition: HOME Prescriptions: Cephalexin CAP* [Keflex CAP*] 500 mg PO BID #14 cap Patient Education Materials: Kidney Infection (ED) Referrals: Jonathan Hawthorne MD [Primary Care Provider] - Additional Instructions: As discussed people with kidney infections sometimes get admitted to the hospital Please go to the ER- IF YOU FEEL SICKER IF YOUR PAIN INCREASES IF YOU START VOMITING IF YOU ARE STILL RUNNING A FEVER IN [address] Hawthorne in 1-2 days for recheck you were given a 1 gm shot of rocephin here take your next dose of antibiotics around dinner time - Billing Disposition and Condition Condition: STABLE Disposition: Home
== END 2018-12-26 09:46 | disposition home or self-care (01) ==
LOC: UCCORT 07:48
DX: N10 Acute pyelonephritis (principal); B96.20 Unspecified Escherichia coli [E. coli] as the cause of diseases classified elsewhere; R50.9 Fever, unspecified; I10 Essential (primary) hypertension; Z88.1 Allergy status to other antibiotic agents; Z91.018 Allergy to other foods
CPT/HCPCS: 81003; 87077; 87086; 87186; 96372; 99212; A9270-GY; G0463; J0696

== ENCOUNTER 2019-01-11 07:19 | Emergency (ER) | payer OTHER ==
[2019-01-11 07:30] VITALS: BP 146/81
--- NOTE | 2019-01-11 07:40 | UC ---
Ear Complaint HPI - HPI Summary HPI Summary: 58 y/o female with one day hx of right ear pain pain started last night , woke her up pain is 8 out of 10 , sharp, no radiation nothing makes it better or worse + cold symptoms , with nasal congestion, pnd , cough no fever, no chills + dizziness - History of Current Complaint Chief Complaint: UCEar Stated Complaint: RT EAR PAIN Time Seen by Provider: 01/11/19 07:27 Hx Obtained From: Patient Hx Last Menstrual Period: na Onset/Duration: Gradual Onset, Lasting Days - 1, Still Present Severity Initially: Moderate Severity Currently: Moderate Pain Intensity: 8 Aggravating Factors: Nothing Alleviating Factors: Nothing Associated Signs/Symptoms: Positive: URI Symptoms. Negative: Discharge, Hearing Loss - Allergies/Home Medications Allergies/Adverse Reactions: Allergies Allergy/AdvReac Type Severity Reaction Status Date / Time azithromycin [From Zithromax] Allergy Severe a fib Verified 01/11/19 07:28 kiwi Allergy Swelling Verified 01/11/19 07:28 Of Face,Lips,& Throat Home Medications: Home Medications Acetaminophen [APAP] 650 mg PO ONCE PRN 01/11/19 [History Confirmed 01/11/19] PMH/Surg Hx/FS Hx/Imm Hx Endocrine History: Hyperthyroidism Cardiovascular History: Hypertension - Surgical History Surgical History: Yes Surgery Procedure, Year, and Place: THYROID - RADIATED, GASTRIC BYPASS 2002, gallbladder, uterine ablation - Family History Known Family History: Positive: Cardiac Disease, Hypertension, Diabetes - Social History Alcohol Use: Weekly Alcohol Amount: 2 Substance Use Type: None Smoking Status (MU): Never Smoked Tobacco Have You Smoked in the Last Year: No - Immunization History Most Recent Influenza Vaccination: Fall 2015 Review of Systems All Other Systems Reviewed And Are Negative: Yes Constitutional: Positive: Negative Skin: Positive: Negative Eyes: Positive: Negative ENT: Positive: Ear Ache, Nasal Discharge Respiratory: Positive: Cough Cardiovascular: Positive: Negative Is Patient Immunocompromised?: No Physical Exam Triage Information Reviewed: Yes Appearance: Well-Appearing, No Pain Distress, Well-Nourished Vital Signs: Initial Vital Signs Temp 99.4 F 01/11/19 07:25 Pulse 78 01/11/19 07:25 Resp 16 01/11/19 07:25 BP 146/81 01/11/19 07:25 Pulse Ox 98 01/11/19 07:25 Vital Signs Reviewed: Yes Eye Exam: Normal Eyes: Positive: Conjunctiva Clear ENT: Positive: Normal ENT inspection, Hearing grossly normal, Pharynx normal, Pharyngeal erythema, TMs normal. Negative: TM bulging, TM dull, TM red Neck exam: Normal Neck: Positive: Supple, Nontender, No Lymphadenopathy Respiratory: Positive: Chest non-tender, Lungs clear, Normal breath sounds Cardiovascular: Positive: RRR, No Murmur, Pulses Normal Ear Complaint Course/Dx - Differential Dx/Diagnosis Provider Diagnosis: Otalgia, right ear Discharge - Sign-Out/Discharge Documenting (check all that apply): Patient Departure All imaging exams completed and their final reports reviewed: No Studies - Discharge Plan Condition: Stable Disposition: HOME Patient Education Materials: Earache (ED) Referrals: Jonathan Hawthorne MD [Primary Care Provider] - 7 Days Additional Instructions: no ear infection noted Possible Eustachian tube dysfunction may Try Flonase daily follow up with your pcp in one week if not better - Billing Disposition and Condition Condition: STABLE Disposition: Home
== END 2019-01-11 07:40 | disposition home or self-care (01) ==
LOC: UCCORT 07:19
DX: H92.01 Otalgia, right ear (principal); R09.81 Nasal congestion; R09.82 Postnasal drip; R05 Cough; R42 Dizziness and giddiness; E05.90 Thyrotoxicosis, unspecified without thyrotoxic crisis or storm; I10 Essential (primary) hypertension; Z88.1 Allergy status to other antibiotic agents; Z91.018 Allergy to other foods
CPT/HCPCS: 99211; G0463

== ENCOUNTER 2019-02-09 09:58 | Emergency (ER) | payer OTHER ==
--- NOTE | 2019-02-09 10:07 | UC ---
Throat Pain/Nasal Kali HPI - HPI Summary HPI Summary: 58 y/o female presents to the urgent care c/o sore throat, PURI and white tongue for the past 2 days. Pt reports she recently finished a treatment w/ Prednisone PO Rx by ENT DR Breaux for her ear infection. Pt states, she finished her treatment Thursday and RT ear pain has improved, but now she developed her sore throat. She wears dentures. Pain w/ swallowing is 8/10 and she feels her gums and lips are mildly swollen. She has taken Tylenol PO 2 tabs around 45 min ago. Pt denies fever, dizziness, visual changes, SOB, chest pain, abdominal pain, N/V/D, cough or URI - History of Current Complaint Stated Complaint: ST,PURI Time Seen by Provider: 02/09/19 10:05 Hx Obtained From: Patient Hx Last Menstrual Period: na ?: No Onset/Duration: Gradual Onset, Lasting Days - 2 days, Still Present, Worse Since - today Severity: Moderate Pain Intensity: 8 - w/ swallowig Pain Scale Used: 0-10 Numeric Cough: None Associated Signs & Symptoms: Positive: Dysphagia. Negative: Drooling, Wheezing , Hoarseness, Sinus Discomfort, Nasal Discharge, Fever, Rash, Other - Epiglottits Risk Factors Epiglottis Risk Factors: Negative - Allergies/Home Medications Allergies/Adverse Reactions: Allergies Allergy/AdvReac Type Severity Reaction Status Date / Time azithromycin [From Zithromax] Allergy Severe a fib Verified 02/09/19 10:13 kiwi Allergy Swelling Verified 02/09/19 10:13 Of Face,Lips,& Throat PMH/Surg Hx/FS Hx/Imm Hx Previously Healthy: Yes Endocrine History: Hypothyroidism, Dyslipidemia Cardiovascular History: Hypertension - Surgical History Surgical History: Yes Surgery Procedure, Year, and Place: THYROID - RADIATED, GASTRIC BYPASS 2002, gallbladder, uterine ablation - Family History Known Family History: Positive: Cardiac Disease, Hypertension, Diabetes - Social History Occupation: Retired Lives: With Family Alcohol Use: Weekly Alcohol Amount: 2 Substance Use Type: None Smoking Status (MU): Never Smoked Tobacco Have You Smoked in the Last Year: No - Immunization History Most Recent Influenza Vaccination: Fall 2015 Review of Systems All Other Systems Reviewed And Are Negative: Yes Constitutional: Positive: Negative Skin: Positive: Negative Eyes: Positive: Negative ENT: Positive: Sore Throat, Other - white tongue, lips and gums are midly swollen. Negative: Ear Ache, Nasal Discharge Respiratory: Positive: Negative Cardiovascular: Positive: Negative Gastrointestinal: Positive: Negative Genitourinary: Positive: Negative Motor: Positive: Negative Neurovascular: Positive: Negative Musculoskeletal: Positive: Negative Neurological: Positive: Headache Psychological: Positive: Negative Is Patient Immunocompromised?: No Physical Exam - Summary Physical Exam Summary: VITAL SIGNS: Reviewed. GENERAL: Patient is a well developed and nourished old female who is sitting comfortable in the examining table. Patient is not in any acute respiratory distress. HEAD AND FACE: No signs of trauma. No ecchymosis, hematomas or skull depressions. No sinus tenderness. EYES: PERRLA, EOMI x 2, No injected conjunctiva, no nystagmus. No photophobia. EARS: Hearing grossly intact. Ear canals and tympanic membranes are within normal limits. MOUTH: Positive pharynx with mild, erythema, no exudates, palatal and gums as well ad tongue w/ white plaques after denture removal. NO B/L tonsillar enlargement . Uvula in midline. NECK: Supple, trachea is midline, Positive anterior cervical lymphadenopathy, no JVD, no carotid bruit, no c-spine tenderness, neck with full ROM. No meningeal signs, no Kernig's or brudzinskis signs. CHEST: Symmetric, no tenderness at palpation LUNGS: Clear to auscultation bilaterally. No wheezing or crackles. CVS: Regular rate and rhythm, S1 and S2 present, no murmurs or gallops appreciated. ABDOMEN: Soft, non-tender. No signs of distention. No rebound no guarding, and no masses palpated. Bowel sounds are normal. EXTREMITIES: FROM in all major joints, no edema, no cyanosis or clubbing. NEURO: Alert and oriented x 3. No acute neurological deficits. Speech is normal and follows commands. SKIN: Dry and warm Triage Information Reviewed: Yes Throat Pain/Nasal Course/Dx - Course Course Of Treatment: 58 y/o female presents to the urgent care c/o sore throat, PURI and white tongue for the past 2 days. Pt reports she recently finished a treatment w/ Prednisone PO Rx by ENT DR Breaux for her ear infection. Pt states, she finished her treatment Thursday and RT ear pain has improved, but now she developed her sore throat. She wears dentures. Pain w/ swallowing is 8/10 and she feels her gums and lips are mildly swollen. She has taken Tylenol PO 2 tabs around 45 min ago. Pt denies fever, dizziness, visual changes, SOB, chest pain, abdominal pain, N/V/D, cough or URI. Hx obtained. Pt w/ oral candidiasis on examination. Pt Rx Nystatin PO and Chlorhexidine Mouthwash to alleviate symptoms. Pt advised to f/u w/ PCP if not improvement of symptoms. Pt's BP is elevated today advised to decrease salt in diet, monitor BP and f/u with PCP for further management. D/C instructions explained. Pt understood and agreed w/ plan of care. - Differential Dx/Diagnosis Differential Diagnosis/HQI/PQRI: Influenza, Laryngitis, Mononucleosis, Otitis Media, Pharyngitis, Tonsillitis, URI, Other - oral candidiasis Provider Diagnosis: Oral thrush, Uncontrolled hypertension Discharge - Sign-Out/Discharge Documenting (check all that apply): Patient Departure - D/C home All imaging exams completed and their final reports reviewed: No Studies - Discharge Plan Condition: Stable Disposition: HOME Prescriptions: Chlorhexidine MOUTHWASH 0.12%* [Peridex Mouth Wash 0.12%*] 15 ml MT BID #1 btl Nystatin SUSPENSION ORAL SYR* 100,000 units PO QID #1 [facility] [place] Patient Education Materials: Oral Candidiasis (ED) Referrals: Jonathan Hawthorne MD [Primary Care Provider] - 3 Days Additional Instructions: 1- Please take Nystatine PO and Chlohexidine mouth wash as directed to alleviate your symptoms. Wash your dentures well every meal. 2-Please take Tylemnol PO q6-8hrs prn as instructed after meals to alleviate pain and swelling. Increase fluid intake, eat well, rest and avoid strenuous exercise 3-If symptoms do not improve or worsen please f/u with your PCP in 3 days for further evaluation and treatment. 4- Your BP is elevated today. please decrease salt in your diet, monitor BP and if it continues to be elevated please f/u with your PCP for further management. - Billing Disposition and Condition Condition: STABLE Disposition: Home
--- OUTSIDE RECORDS SUMMARY | 2019-02-09 10:07 | XMS REPORT | Continuity of Care Document ---
:1960 External Reference #:[id number] Author Name Samantha Morales NP Address [address] [place] [address] Care Team Providers Name Role Phone Riccardo Hawthorne D.O. 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 Primary Care Physician Unavailable Payers Date Identification Numbers Payment Provider Subscriber Policy Number: [id number] Lifetime Benefits Watson [facility]wood [facility] [address] [address] [place] [address] Problems Active Problems Provider Date Vertigo Onset: 07/04/2015 Chest pain Onset: 01/04/2015 Bradycardia Onset: 03/23/2014 Hypothyroidism Onset: 03/23/2014 Hypertensive disorder Onset: 03/23/2014 Family History Date Family Member(s) Observation Comments Father due to Stroke () - age unknown Mother due to Heart Disease () - age 82 First Brother due to Kidney Disease () - age 68 Second Brother due to Unknown Causes () - age 63 First Sister due to Cancer () - age 46 Social History Type Date Description Comments Sex Unknown Tobacco Use Start: Unknown Never Smoked Cigarettes ETOH Use Current Alcohol Use - 1-3 Days A Week. Recreational Drug Use Never Used Drugs Allergies, Adverse Reactions, Alerts Active Allergies Reaction Severity Comments Date Zithromax 02/02/2019 Kiwi 02/02/2019 Medications Active Medications SIG Qnty Indications Ordering Provider Date Dexamethasone 1 by mouth 5tabs Jamie Breaux, 02/02/2019 4mg Tablets M.D. Fluticasone Propionate 2 sprays each 29.7ml Jamie Breaux, 02/02/2019 nostril every M.D. 50mcg/Act Suspension day Levothyroxine Sodium 1 by mouth every Unknown day 2 po q 100mcg Tablets thursday Flecainide Acetate 2x Unknown 50mg Tablets Amlodipine Besylate once a day Unknown 2.5mg Tablets History Medications Aspirin Ec 81mg Once Daily Unknown - Tablets DR Vitamin B-12 Once Daily Unknown - 02/02/2019 100mcg Tablets Folic Acid 1mg Once Daily Unknown - 02/02 Tablets Levothyroxine Sodium Once Daily Unknown - 02/02/2019 125mcg Tablets Levothyroxine Sodium Once Daily Unknown - 02/02/2019 137mcg Tablets Vital Signs Date Vital Result Comment 02/02/2019 10:15am Weight 199.00 lb Height 64 inches 5'4" BMI (Body Mass Index) 34.2 kg/m2 BP Systolic 122 mmHg BP Diastolic 85 mmHg Heart Rate 82 /min O2 % BldC Oximetry 97 % Body Temperature 98.7 F Pain Level 6 Encounters Type Date Location Provider Dx Diagnosis Office Visit 02/02/2019 Main Office Samantha Morales, 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
--- OUTSIDE RECORDS SUMMARY | 2019-02-09 10:07 | XMS REPORT | Continuity of Care Document ---
:1960 External Reference #:[id number] Author Name Yeny March Care Team Providers Name Role Phone Riccardo Hawthorne D.O. 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 Primary Care Physician Unavailable Payers Date Identification Numbers Payment Provider Subscriber Policy Number: [id number] Lifetime Benefits Watson Atwood PayID: [facility] [address] [address] [place] [address] Problems Active Problems Provider Date Vertigo Onset: [...] Medications SIG Qnty Indications Ordering Provider Date Levothyroxine Sodium 1 by mouth every Unknown 100mcg day 2 po q Tablets thursday Flecainide Acetate 2x Unknown 50mg [...]
[2019-02-09 10:12] VITALS: BP 148/97
== END 2019-02-09 10:42 | disposition home or self-care (01) ==
LOC: UCCORT 09:58
DX: B37.0 Candidal stomatitis (principal); I10 Essential (primary) hypertension
CPT/HCPCS: 99212; G0463

== ENCOUNTER 2019-07-19 09:57 | Emergency (ER) | payer OTHER ==
--- NOTE | 2019-07-19 10:12 | UC ---
Complaint Female HPI - HPI Summary HPI Summary: 59 yo female presents with lower abdominal cramping for 3 days and bladder pressure with urinary frequency for 2 days. Today she noticed that it feels she has to urinate all the time, but not much urine comes out. She has had UTIs in the past and this feels similar. She denies fever, chills, SOB, chest pain, flank pain, gross hematuria, vaginal bleeding or discharge, n/v. - History Of Current Complaint Stated Complaint: URINARY COMPLAINT Time Seen by Provider: 07/19/19 10:11 Hx Obtained From: Patient Hx Last Menstrual Period: na Onset/Duration: Gradual Onset Severity Initially: Mild Severity Currently: Moderate Pain Intensity: 5 Pain Scale Used: 0-10 Numeric - Allergies/Home Medications Allergies/Adverse Reactions: Allergies Allergy/AdvReac Type Severity Reaction Status Date / Time azithromycin [From Zithromax] Allergy Severe a fib Verified 07/19/19 10:13 kiwi Allergy Swelling Verified 07/19/19 10:13 Of Face,Lips,& Throat Home Medications: Home Medications cloNIDine TAB* [Catapres 0.1 MG TAB*] 0.1 mg PO DAILY 07/19/19 [History Confirmed 07/19/19] PMH/Surg Hx/FS Hx/Imm Hx Endocrine History: Hypothyroidism Cardiovascular History: Hypertension - Surgical History Surgical History: Yes Surgery Procedure, Year, and Place: THYROID - RADIATED, GASTRIC BYPASS 2002, gallbladder, uterine ablation - Family History Known Family History: Positive: Cardiac Disease, Hypertension, Diabetes - Social History Lives: With Family Alcohol Use: Weekly Alcohol Amount: 2 Substance Use Type: None Smoking Status (MU): Never Smoked Tobacco Have You Smoked in the Last Year: No - Immunization History Most Recent Influenza Vaccination: Fall 2015 Review of Systems All Other Systems Reviewed And Are Negative: No Constitutional: Positive: Negative Skin: Positive: Negative Respiratory: Positive: Negative Cardiovascular: Positive: Negative Gastrointestinal: Positive: Abdominal Pain Genitourinary: Positive: Dysuria Neurological: Positive: Negative Psychological: Positive: Negative Physical Exam - Summary Physical Exam Summary: GENERAL: NAD. WDWN. No pain distress. SKIN: No rashes, sores, lesions, or open wounds. NECK: Supple. Nontender. No lymphadenopathy. CHEST: CTAB. No r/r/w. No accessory muscle use. Breathing comfortably and in no distress. CV: RRR. Pulses intact. Cap refill <2seconds ABDOMEN: Soft. NTTP. No distention or guarding. No CVA tenderness. Bowel sounds present NEURO: Alert. PSYCH: Age appropriate behavior. Triage Information Reviewed: Yes Vital Signs: Vital Signs: Temp Pulse Resp BP Pulse Ox 98.5 F 94 18 148/94 98 07/19/19 10:14 07/19/19 10:14 07/19/19 10:14 07/19/19 10:14 07/19/19 10:14 Laboratory Tests 07/19/19 10:21 POC Urine Color Yellow POC Urine Clarity Clear POC Urine pH 5.5 POC Ur Specif [place] 1.025 POC Urine Protein 2+ A POC Ur Glucose (UA) Negative POC Urine Ketones Negative POC Urine Blood 2+ A POC Urine Nitrite Negative POC Urine Bilirubin Negative POC Urine Urobilinogen 0.2 POC U Leukocyte Esteras 2+ A Vital Signs Reviewed: Yes Complaint Female Dx - Course Course Of Treatment: UA positive. Will treat for UTI and send urine for culture. - Differential Dx/Diagnosis Provider Diagnosis: UTI (urinary tract infection) Discharge ED - Sign-Out/Discharge Documenting (check all that apply): Patient Departure All imaging exams completed and their final reports reviewed: No Studies - Discharge Plan Condition: Stable Disposition: HOME Prescriptions: Cephalexin CAP* [Keflex CAP*] 500 mg PO BID #10 cap Phenazopyridine 200 mg (NF) [Pyridium 200 MG tab *] 200 mg PO TID #6 tab Patient Education Materials: Urinary Tract Infection in Women (ED) Referrals: Jonathan Hawthorne MD [Primary Care Provider] - Additional Instructions: If you develop a fever, shortness of breath, chest pain, new or worsening symptoms - please call your PCP or go to the ED immediately. Your blood pressure was high at todays visit. Please see your primary provider within 4 weeks for recheck and re-evaluation. - Billing Disposition and Condition Condition: STABLE Disposition: Home
[2019-07-19 10:19] VITALS: BP 148/94
== END 2019-07-19 10:33 | disposition home or self-care (01) ==
LOC: UCCORT 09:57
DX: N39.0 Urinary tract infection, site not specified (principal); R10.30 Lower abdominal pain, unspecified; I10 Essential (primary) hypertension; Z88.1 Allergy status to other antibiotic agents; Z91.018 Allergy to other foods; Z79.899 Other long term (current) drug therapy
CPT/HCPCS: 81003; 87077; 87086; 87186; 99212; G0463

== ENCOUNTER 2019-08-23 08:37 | Emergency (ER) | payer OTHER ==
[2019-08-23 08:58] VITALS: BP 123/83
--- NOTE | 2019-08-23 10:49 | UC ---
Lower Extremity/Ankle HPI - HPI Summary HPI Summary: left left pain x 1 week pain is 6 out of 10 , dull, worse with movement , better with rest no known injury , concern about DVT denies any recent travel , no hx of smoking - History of Current Complaint Chief Complaint: UCLowerExtremity Stated Complaint: L LEG PAIN Time Seen by Provider: 08/23/19 09:02 Hx Obtained From: Patient Hx Last Menstrual Period: na Onset/Duration: Gradual Onset, Lasting Days - 7, Still Present Severity Initially: Moderate Severity Currently: Moderate Pain Intensity: 7 Pain Scale Used: 0-10 Numeric Aggravating Factor(s): Standing, Ambulation Alleviating Factor(s): Rest, Elevation Able to Bear Weight: Yes - Allergies/Home Medications Allergies/Adverse Reactions: Allergies Allergy/AdvReac Type Severity Reaction Status Date / Time azithromycin [From Zithromax] Allergy Severe a fib Verified 08/23/19 08:52 kiwi Allergy Swelling Verified 08/23/19 08:52 Of Face,Lips,& Throat PMH/Surg Hx/FS Hx/Imm Hx Endocrine History: Thyroid Disease Cardiovascular History: Hypertension, Atrial Fibrillation - Surgical History Surgical History: Yes Surgery Procedure, Year, and Place: THYROID - RADIATED, GASTRIC BYPASS 2002, gallbladder, uterine ablation - Family History Known Family History: Positive: Cardiac Disease, Hypertension, Diabetes - Social History Alcohol Use: Weekly Alcohol Amount: 2 Substance Use Type: None Smoking Status (MU): Never Smoked Tobacco Have You Smoked in the Last Year: No - Immunization History Most Recent Influenza Vaccination: Fall 2015 Review of Systems All Other Systems Reviewed And Are Negative: Yes Constitutional: Positive: Negative Skin: Positive: Negative Eyes: Positive: Negative Is Patient Immunocompromised?: No Physical Exam Triage Information Reviewed: Yes Appearance: Well-Appearing, No Pain Distress, Well-Nourished Vital Signs: Initial Vital Signs Temp 99 F 08/23/19 08:54 Pulse 81 08/23/19 08:54 Resp 16 08/23/19 08:54 BP 123/83 08/23/19 08:54 Pulse Ox 99 08/23/19 08:54 Vital Signs Reviewed: Yes Eye Exam: Normal Eyes: Positive: Conjunctiva Clear ENT: Positive: Normal ENT inspection, Hearing grossly normal, Pharynx normal Neck: Positive: Supple, Nontender, No Lymphadenopathy Respiratory: Positive: Chest non-tender, Lungs clear, Normal breath sounds Cardiovascular: Positive: RRR, No Murmur, Pulses Normal Abdominal Exam: Normal Abdomen Description: Positive: Nontender, Soft Musculoskeletal: Positive: Strength Intact, ROM Intact, No Edema, Other: - left leg: mild diffuse tenderness, no swelling, no redness Diagnostics - Radiology No standard instances Radiology Interpretation Completed By: Radiologist Summary of Radiographic Findings: US left lower leg: no DVT noted Lower Extremity Course/Dx - Differential Dx/Diagnosis Provider Diagnosis: Right leg pain Discharge ED - Sign-Out/Discharge Documenting (check all that apply): Patient Departure All imaging exams completed and their final reports reviewed: Yes - Discharge Plan Condition: Stable Disposition: HOME Patient Education Materials: Leg Pain (ED) Forms: *Work Release Referrals: No Primary Care Phys,NOPCP [Primary Care Provider] - 7 Days Additional Instructions: US negative for DVT cont. with rest, heating pads, take Tylenol as needed for pain follow up with your pcp in one week - Billing Disposition and Condition Condition: STABLE Disposition: Home
== END 2019-08-23 10:21 | disposition home or self-care (01) ==
LOC: UCCORT 08:37
DX: M79.604 Pain in right leg (principal); M79.605 Pain in left leg; I10 Essential (primary) hypertension; Z88.1 Allergy status to other antibiotic agents; Z91.018 Allergy to other foods
CPT/HCPCS: 99211; G0463

== ENCOUNTER 2019-12-11 11:20 | Emergency (ER) | payer OTHER ==
[2019-12-11 11:42] VITALS: BP 136/96
--- NOTE | 2019-12-11 11:45 | UC ---
Complaint Female HPI - HPI Summary HPI Summary: 59 year old female presents with complaint of "I think I have a UTI." She has noted intermittent nausea without vomiting, and urinary frequency for two days. Suprapubic "sqeezing" pain while urinating and urinary urgency this morning. Denies fever, abdominal pain, back pain, vomiting, diarrhea, gross hematuria, or abnormal vaginal discharge/itching/odor/pain. - History Of Current Complaint Chief Complaint: [facility] Stated Complaint: URINARY COMPLAINT Time Seen by Provider: 12/11/19 11:33 Hx Obtained From: Patient Hx Last Menstrual Period: na Pain Intensity: 0 - Allergies/Home Medications Allergies/Adverse Reactions: Allergies Allergy/AdvReac Type Severity Reaction Status Date / Time azithromycin [From Zithromax] Allergy Severe a fib Verified 12/11/19 11:37 kiwi Allergy Swelling Verified 12/11/19 11:37 Of Face,Lips,& Throat Home Medications: Home Medications Amlodipine Besylate [Amlodipine 2.5 mg tab] 2.5 mg PO DAILY 10/11/17 [History Confirmed 12/11/19] Flecainide* TAB 1 tab PO BID 08/18/18 [History Confirmed 12/11/19] Cephalexin CAP* [Keflex 500 CAP*] 500 mg PO BID 10 Days #20 cap 12/11/19 [Rx] Levothyroxine TAB* [Synthroid 88 MCG TAB*] 88 mcg PO DAILY 12/11/19 [History Confirmed 12/11/19] PMH/Surg Hx/FS Hx/Imm Hx Previously Healthy: Yes Endocrine History: Hypothyroidism Cardiovascular History: Hypertension - Surgical History Surgical History: Yes Surgery Procedure, Year, and Place: THYROID - RADIATED, GASTRIC BYPASS 2002, gallbladder, uterine ablation - Family History Known Family History: Positive: Cardiac Disease, Hypertension, Diabetes - Social History Alcohol Use: Weekly Alcohol Amount: 2 Substance Use Type: None Smoking Status (MU): Never Smoked Tobacco Have You Smoked in the Last Year: No - Immunization History Most Recent Influenza Vaccination: Fall 2015 Review of Systems All Other Systems Reviewed And Are Negative: Yes Constitutional: Positive: Negative Skin: Positive: Negative Eyes: Positive: Negative ENT: Positive: Negative Respiratory: Positive: Negative Cardiovascular: Positive: Negative Gastrointestinal: Positive: Negative Genitourinary: Positive: Dysuria, Frequency, Urgency. Negative: Hematuria Motor: Positive: Negative Neurovascular: Positive: Negative Musculoskeletal: Positive: Negative Neurological/Mental Status: Positive: Negative Psychological: Positive: Negative Is Patient Immunocompromised?: No Physical Exam Triage Information Reviewed: Yes Appearance: Well-Appearing, No Pain Distress Vital Signs: Initial Vital Signs Temp 98.2 F 12/11/19 11:35 Pulse 86 12/11/19 11:35 Resp 16 12/11/19 11:35 BP 136/96 12/11/19 11:35 Pulse Ox 98 12/11/19 11:35 Vital Signs Reviewed: Yes Eye Exam: Normal ENT Exam: Normal Neck: Positive: Supple, Nontender, No Lymphadenopathy Respiratory: Positive: Lungs clear. Negative: Crackles, Rhonchi, Wheezing Cardiovascular: Positive: RRR, No Murmur Abdomen Description: Positive: Nontender, Soft. Negative: CVA Tenderness (R), CVA Tenderness (L) Musculoskeletal Exam: Normal Neurological Exam: Normal Psychological Exam: Normal Complaint Female Dx - Differential Dx/Diagnosis Provider Diagnosis: Urinary tract infection Discharge ED - Sign-Out/Discharge Documenting (check all that apply): Patient Departure All imaging exams completed and their final reports reviewed: No Studies - Discharge Plan Condition: Stable Disposition: HOME Prescriptions: Cephalexin CAP* [Keflex 500 CAP*] 500 mg PO BID 10 Days #20 cap Patient Education Materials: Urinary Tract Infection in Women (DC) Referrals: No Primary Care Phys,NOPCP [Primary Care Provider] - Additional Instructions: Drink plenty of water, take your antibiotics as prescribed. Follow-up with your primary care physician if your symptoms persist or worsen. - Billing Disposition and Condition Condition: STABLE Disposition: Home
== END 2019-12-11 12:03 | disposition home or self-care (01) ==
LOC: UCCORT 11:20
DX: N39.0 Urinary tract infection, site not specified (principal); E89.0 Postprocedural hypothyroidism; I10 Essential (primary) hypertension; Z79.890 Hormone replacement therapy; Z79.899 Other long term (current) drug therapy; Z88.1 Allergy status to other antibiotic agents; Z91.018 Allergy to other foods
CPT/HCPCS: 81003; 87077; 87086; 87186; 99212; G0463